=== PATIENT | male | born 1990 | race Caucasian/White ===

== ENCOUNTER → 2023-03-21 10:03 | Outpatient (BNVA) | payer BC, SELFPAY | PROVIDERS: PCP Nurse Practitioner; Visit Provider Internal Medicine Rheumatology | DX: Z11.59 Encounter for screening for other viral diseases (principal); Z79.899 Other long term (current) drug therapy; M19.90 Unspecified osteoarthritis, unspecified site | CPT/HCPCS: 36415; 72100; 72202; 73130; 73630; 80076; 82085; 82306; 82550; 82565; 83520; 85025; 85651; 86140; 86480; 86704; 86803; 86812; 87340 ==

== ENCOUNTER 2023-04-20 09:15 | Outpatient (CLI) | payer BC, SELFPAY ==
[2023-04-20 10:08] LABS: Creatine Phosphokinase 107 U/L (39-308)
[2023-04-20 10:13] LABS: Erythrocyte Sedimentation Rate 5 mm/hr (0-10)
[2023-04-22 14:05] LABS: Aldolase 5.3 U/L (< OR = 8.1)
[2023-04-29 00:19] LABS: Myositis EJ AB <11 SI (<11); Myositis JO-1 AB <11 SI (<11); Myositis MDA-5 AB <11 SI (<11); Myositis MI-2 Alpha AB <11 SI (<11); Myositis MI-2 Beta AB <11 SI (<11); Myositis NXP-2AB <11 SI (<11); Myositis OJ AB <11 SI (<11); Myositis PL-12 AB <11 SI (<11); Myositis PL-7 AB <11 SI (<11); Myositis SRP AB <11 SI (<11); Myositis TIF-1y AB <11 SI (<11)
== END 2023-04-20 09:16 | disposition home or self-care (01) ==
LOC: LAB 09:16
PROVIDERS: PCP Nurse Practitioner; Visit Provider Internal Medicine Rheumatology
DX: M06.041 Rheumatoid arthritis without rheumatoid factor, right hand (principal); M06.042 Rheumatoid arthritis without rheumatoid factor, left hand; Z79.899 Other long term (current) drug therapy
CPT/HCPCS: 36415; 82085; 82550; 84182; 85651; 86140; 86235

== ENCOUNTER 2023-05-02 11:29 | Outpatient (CLI) | payer BC, SELFPAY ==
[2023-05-02 12:16] LABS: Erythrocyte Sedimentation Rate 12 mm/hr (0-10)
[2023-05-02 12:38] LABS: Creatine Phosphokinase 294 U/L (39-308)
[2023-05-02 13:50] LABS: Free T4 Free Thyroxine 1.18 ng/dL (0.82-1.77)
[2023-05-04 08:29] LABS: Thyroglobulin AB <1 IU/mL (< or = 1); Thyroid Peroxidase Antobodies <1 IU/mL (<9)
[2023-05-04 13:30] LABS: Aldolase 10.9 U/L (< OR = 8.1)
== END 2023-05-02 11:30 | disposition home or self-care (01) ==
LOC: LAB 11:30
PROVIDERS: PCP Nurse Practitioner; Visit Provider Internal Medicine Rheumatology
DX: R76.8 Other specified abnormal immunological findings in serum (principal); M79.7 Fibromyalgia; Z79.899 Other long term (current) drug therapy; M54.89 Other dorsalgia; M06.041 Rheumatoid arthritis without rheumatoid factor, right hand; M06.042 Rheumatoid arthritis without rheumatoid factor, left hand
CPT/HCPCS: 36415; 82085; 82550; 84439; 84443; 85651; 86140; 86376; 86800

== ENCOUNTER → 2023-06-28 14:33 | Outpatient (BNVA) | payer BC, SELFPAY | PROVIDERS: PCP Nurse Practitioner; Visit Provider Internal Medicine Rheumatology | DX: Z79.899 Other long term (current) drug therapy (principal); M06.041 Rheumatoid arthritis without rheumatoid factor, right hand; M06.042 Rheumatoid arthritis without rheumatoid factor, left hand | CPT/HCPCS: 36415; 80076; 82565; 85025; 86140 ==

== ENCOUNTER 2023-08-26 11:11 | Outpatient (CLI) | payer SELFPAY ==
[2023-08-26 11:45] LABS: Erythrocyte Sedimentation Rate 9 mm/hr (0-10)
[2023-08-26 12:05] LABS: C Reactive Protein 3.2 mg/L (0.0-4.9); Creatine Phosphokinase 153 U/L (39-308); Free T4 Free Thyroxine 0.88 ng/dL (0.82-1.77)
[2023-08-29 12:39] LABS: Aldolase 6.2 U/L (< OR = 8.1)
== END 2023-08-26 11:12 | disposition home or self-care (01) ==
LOC: LAB 11:12
PROVIDERS: PCP Nurse Practitioner; Visit Provider Internal Medicine Rheumatology
DX: M62.81 Muscle weakness (generalized) (principal); R53.83 Other fatigue; Z79.899 Other long term (current) drug therapy
CPT/HCPCS: 82085; 82550; 84439; 84443; 85651; 86140

== ENCOUNTER 2023-10-14 11:21 | Outpatient (CLI) | payer SELFPAY | END 2023-10-14 11:22 | disposition home or self-care (01) | LOC: LAB 11:26 | PROVIDERS: PCP Nurse Practitioner; Visit Provider Internal Medicine Rheumatology | DX: G25.82 Stiff-man syndrome (principal) | CPT/HCPCS: 36415; 86337; 86341 ==

== ENCOUNTER 2024-01-07 11:40 | Emergency (ER) | payer BC, SELFPAY ==
[2024-01-07 11:45] VITALS: BP 117/75; PULSE 66; RESP 16; TEMP 36.7; O2SAT 98; BMI 38.0
--- NOTE | 2024-01-07 11:59 | W.ED.MALEGU ---
HPI - Male Genitourinary General: Chief complaint: Urogenital-Male Stated complaint: catheter issue Time Seen by Provider: 01/07/24 11:58 History of Present Illness: 33-year-old male presents to the emergency room complaining difficulty with Molina. Patient was seen in another facility evidently found to have urinary retention and a Molina was placed. He was discharged home on Flomax. He is complaining of pain and irritation at the glans of the penis-difficulty managing the Molina bag. He did not feel like he had been educated properly on how to use the Molina. He has a full-size Molina bag in place at this time. Associated symptoms: Deny dysuria Related Data Home Medications Medication Instructions Recorded Confirmed acetaminophen 500 mg tablet 1,000 mg PO QID PRN 03/21/23 06/28/23 (Tylenol Extra Strength) aripiprazole 10 mg tablet (Abilify) 10 mg PO DAILY 03/21/23 06/28/23 baclofen 10 mg tablet 20 mg PO TID 03/21/23 06/28/23 celecoxib 200 mg capsule (Celebrex) 200 mg PO DAILY 03/21/23 06/28/23 diazepam 10 mg tablet 10 mg PO BID 03/21/23 06/28/23 diazepam 5 mg tablet 5 mg PO .noon 03/21/23 06/28/23 duloxetine 60 mg capsule,delayed 60 mg PO DAILY 03/21/23 06/28/23 release dexmethylphenidate 40 mg 40 mg PO QAM 05/26/23 06/28/23 capsule,extended release [id number] (Focalin XR) levothyroxine 50 mcg capsule 75 mcg PO DAILY 05/26/23 06/28/23 Previous Rx's Medication Instructions Recorded prednisone 20 mg tablet See Rx Instructions PO .COMPLEX 03/21/23 PRN joint pain flare #30 tabs folic acid 1 mg tablet 1 mg PO DAILY #30 tabs 06/28/23 hydroxychloroquine 200 mg tablet 200 mg PO BID #60 tabs 06/28/23 methotrexate sodium 2.5 mg tablet See Rx Instructions PO Q7D #30 tabs 06/28/23 pantoprazole 40 mg tablet,delayed See Rx Instructions PO DAILY #90 06/28/23 release tabs prednisone 10 mg tablet See Rx Instructions PO DAILY #90 06/28/23 tabs pregabalin 100 mg capsule (Lyrica) 200 mg (2 x 100 mg) PO BID #120 06/28/23 caps ciprofloxacin HCl 500 mg tablet 500 mg PO BID 7 days #14 tabs 01/07/24 (Cipro) Allergies Allergy/AdvReac Type Severity Reaction Status Date / Time cefaclor [From Pending Sale To [facility]] Allergy Intermediate hives Verified 01/07/24 11:44 Tetanus Vaccines and Toxoid Allergy Unknown unknown Verified 01/07/24 11:44 Review of Systems Const: Denies: fever(s) or chills Card: Denies: chest pain Resp: Denies: dyspnea GI: Denies: abdominal pain : Denies: dysuria, urinary frequency or urinary urgency Musc: Denies: neck pain or back pain Skin/Breast: Denies: rash PFSH ED PFSH: Medical History Psychiatric care Immunization counseling High risk medication use Inflammatory back pain Seronegative rheumatoid arthritis of both hands Fibromyalgia Hypothyroid Schizo affective schizophrenia Bipolar 1 disorder, depressed Panic attack ADHD Joint pain Surgical History History of dental surgery Family History Other Cancer Denies family history of Lupus (systemic lupus erythematosus) Rheumatoid arthritis Diabetes Autoimmune disease Chronic kidney disease (CKD) Hypertension Social History Smoking and tobacco/nicotine status: current every day tobacco/nicotine user e-cigarettes E-cig/vape details: Vapes daily for quite a while Alcohol intake: never Substance/Drug Use: never Physical Exam Const: GENERAL APPEARANCE: cooperative ORIENTATION/CONSCIOUSNESS: Yes awake, Yes oriented to person, Yes oriented to place and Yes oriented to time HENMT: COMMON NORMALS: normocephalic, atraumatic and hearing grossly normal bilaterally HEAD & SCALP: normocephalic and atraumatic Resp: COMMON NORMALS: normal respiratory effort, No retractions, No use of accessory muscles and clear to auscultation bilaterally AUSCULTATION: clear to auscultation bilaterally Cardio: COMMON NORMALS: regular rate, regular rhythm and No murmurs present (Cardio) RATE: regular rate RHYTHM: regular rhythm GI: COMMON NORMALS: Soft to palpation and No hepatosplenomegaly present AUSCULTATION: Yes normoactive bowel sounds PALPATION: Yes Soft to palpation, No Tenderness to palpation present (GI), No Guarding due to palpation present (GI) and Yes No hepatosplenomegaly present : COMMON NORMALS: Yes no CVA tenderness BLADDER/KIDNEY EXAM: Yes no CVA tenderness Back/Pelvis: COMMON NORMALS: no CVA tenderness Extremity: COMMON NORMALS: normal to inspection, capillary refill normal, no clubbing, cyanosis or edema, no calf tenderness and no pedal edema Neuro: SENSORIUM/ORIENTATION: Yes oriented to person, Yes oriented to place and Yes oriented to time Skin: COMMON NORMALS: no rashes or lesions noted GENERAL SKIN EXAM: no rashes or lesions noted Course Vital Signs: Vital signs: Vital Signs Temperature 98.1 F 01/07/24 11:45 Pulse Rate 65 01/07/24 12:59 Respiratory Rate 16 01/07/24 11:45 Blood Pressure 117/75 01/07/24 11:45 Pulse Oximetry 100 01/07/24 12:59 MDM - Male Medical Decision Making Patient does have a cystitis urine reviewed. Started on ciprofloxacin continue the Flomax will change his bag out to a leg bag to make it easier to manage nurse educated patient on management of it. Will discharge patient home and have him follow-up with urology as planned. Medical Records I reviewed the patient's medical records. Lab Data I reviewed the patient's lab results. 01/07/24 12:26 01/07/24 12:26 Laboratory Results WBC 6.43 10^3/uL (3.29-11.43) 01/07/24 12: RBC 4.48 10^6/uL (3.85-5.65) 01/07/24 12: Hgb 13.20 g/dL (11.27-16.99) 01/07/24 12: Hct 40.6 % (37-53) 01/07/24 12: MCV 90.6 fl (82-101) 01/07/24 12: MCH 29.5 pg (27-33) 01/07/24 12: MCHC 32.5 g/dL (30-55) 01/07/24 12: RDW 14.0 % (12.1-15.1) 01/07/24 12: Plt Count 226 10^3/cmm (157-399) 01/07/24 12: MPV 8.7 fL (7.4-10.4) 01/07/24 12: Neut % (Auto) 70.4 % 01/07/24 12: Lymph % (Auto) 21.8 % 01/07/24 12: [place] % (Auto) 6.4 % 01/07/24 12: Eos % (Auto) 0.8 % 01/07/24 12: Baso % (Auto) 0.6 % 01/07/24 12: Neut # (Auto) 4.53 10^3/uL (1.8-7.7) 01/07/24 12: Lymph # (Auto) 1.4 10^3/uL (0.8-4.8) 01/07/24 12: [place] # (Auto) 0.4 10^3/uL (0.2-0.9) 01/07/24 12: Eos # (Auto) 0.1 10^3/uL (0.0-0.8) 01/07/24 12: Baso # (Auto) 0.0 10^3/uL (0.0-0.1) 01/07/24 12: Nucleated RBC % (auto) 0 % 01/07/24 12: Nucleated RBCs # 0.0 /100WBC 01/07/24 12: Sodium 135 mmol/L (136-145) L 01/07/24 12: Potassium 4.0 mmol/L (3.5-5.1) 01/07/24 12: Chloride 101 mmol/L (98-107) 01/07/24 12: Carbon Dioxide 26 mmol/L (22-29) 01/07/24 12: Anion Gap 12.0 (5-19) 01/07/24 12: BUN 7 mg/dL (6-20) 01/07/24 12: Creatinine 0.9 mg/dL (0.7-1.2) 01/07/24 12: GFR Calculation 97.8 mL/min (90-130) 01/07/24 12: Glucose 107 mg/dL (65-115) 01/07/24 12: Calculated Osmolality 278 mOsm/kg (285-295) L 01/07/24 12: Calcium 8.8 mg/dL (8.5-10.5) 01/07/24 12: Total Bilirubin 0.3 mg/dL (0.15-1.2) 01/07/24 12: AST 18 U/L (0-40) 01/07/24 12: ALT 17 U/L (0-41) 01/07/24 12: Alkaline Phosphatase 61 U/L (40-130) 01/07/24 12: Total Protein 6.0 g/dL (6.6-8.7) L 01/07/24 12: Albumin 3.8 g/dL (3.5-5.2) 01/07/24 12: Globulin 2.2 g/dL (1.3-4.6) 01/07/24 12: Urine Color Yellow (Yellow) 01/07/24 12:08 Urine Appearance Clear (CLEAR) 01/07/24 12:08 Urine pH 7.5 (5-7) 01/07/24 12:08 Ur Specific [place] 1.003 (1.005-1.030) L 01/07/24 12:08 Urine Protein Negative (Negative) 01/07/24 12: Urine Glucose (UA) Negative (Normal) 01/07/24 12: Urine Ketones Negative (Negative) 01/07/24 12:08 Urine Blood 3+ (Negative) A 01/07/24 12: Urine Nitrate Positive (Negative) A 01/07/24 12: Urine Bilirubin Negative (Negative) 01/07/24 12:08 Urine Urobilinogen 0.2 mg/dL (Negative) 01/07/24 12:08 Ur Leukocyte Esterase 2+ (Negative) A 01/07/24 12:08 Urine RBC 15-25 /hpf (0-2) H 01/07/24 12:08 Urine WBC 25-40 /hpf (0-5) H 01/07/24 12:08 Ur Squamous Epith Cells 0-4 /hpf (0-5) H 01/07/24 12:08 Amorphous Sediment Not Reportable 01/07/24 12:08 Urine Bacteria 2+ /hpf (NONE) H 01/07/24 12:08 No radiology studies performed this visit Discharge Plan Discharge Patient Disposition: Home Clinical Impression: Acute urinary retention, Cystitis Condition: Stable Prescriptions: New ciprofloxacin HCl [Cipro] 500 mg tablet 500 mg PO BID 7 Days Qty: 14 0RF No Action aripiprazole [Abilify] 10 mg tablet 10 mg PO DAILY diazepam 10 mg tablet 10 mg PO BID diazepam 5 mg tablet 5 mg PO .noon duloxetine 60 mg capsule,delayed release(DR/EC) 60 mg PO DAILY baclofen 10 mg tablet 20 mg PO TID celecoxib [Celebrex] 200 mg capsule 200 mg PO DAILY acetaminophen [Tylenol Extra Strength] 500 mg tablet 1,000 mg PO QID PRN prednisone 20 mg tablet See Rx Instructions PO .COMPLEX PRN (Reason: joint pain flare) Qty: 30 1RF Rx Instructions: take 2 tab daily for 7 days as needed for arthritis flare PO PRN; levothyroxine 50 mcg capsule 75 mcg PO DAILY folic acid 1 mg tablet 1 mg PO DAILY Qty: 30 5RF hydroxychloroquine 200 mg tablet 200 mg PO BID Qty: 60 5RF methotrexate sodium 2.5 mg tablet See Rx Instructions PO Q7D Qty: 30 5RF Rx Instructions: take 6 tabs once weekly/every tuesday PO every 7 days; pantoprazole 40 mg tablet,delayed release (DR/EC) See Rx Instructions PO DAILY Qty: 90 1RF Rx Instructions: take in AM 30 minutes before meal PO daily; prednisone 10 mg tablet See Rx Instructions PO DAILY Qty: 90 1RF Rx Instructions: take 20mg daily x2 weeks then stay on 10mg orally daily; pregabalin [Lyrica] 100 mg capsule 200 mg PO BID Qty: 120 5RF dexmethylphenidate [Focalin XR] 40 mg capsule,ER biphasic 50-50 40 mg PO QAM Discharge Orders: Discharge ED (Routine); Ordered 01/07/24 Ordered By: Mendez Wilson Referrals: Klaudia Mullins APRN [Primary Care Provider] - Discharge Diet: Usual diet Discharge Activity: Resume usual activity Patient Instructions: Opioid Safety, Pain Management Activity Restrictions/Additional Instructions: Thank you for choosing [facility] for your healthcare needs today. It is very important that you follow up as instructed or that you return to the Emergency Department should you have concerns or if your condition changes or worsens in any way. You were seen today with complaints of difficulty with the Molina catheter. Due to related to his that the Molina catheter was placed at an outside hospital for urinary retention. There is signs of infection on the urine sample done today. Recommend you start oral antibiotics 1 pill twice a day for 7 days follow-up with urology as you were previously recommended. We did replace the Molina bag you were wearing when you first arrived with a leg bag which will be easier to manage. Coding Level of Care Code ED Faa Certified Powerplant Mechanic for Randall Kebede
[2024-01-07 12:17] LABS: Bilirubin Urine Negative (Negative); Blood Urine 3+ (Negative); Glucose Urine UA Negative (Normal); Ketones Urine Negative (Negative); Leukocyte Esterase Urine 2+ (Negative); Nitrate Urine Positive (Negative); Protein Urine Negative (Negative); Specific Gravity, Urine 1.003 (1.005-1.030); Urine Appearance Clear (CLEAR); Urine Color Yellow (Yellow); Urobilinogen Urine 0.2 mg/dL (Negative); pH Urine 7.5 (5-7)
[2024-01-07 12:26] LABS: Add Urine Microscopic? YES; Bacteria Urine 2+ /hpf; RBC Urine 15-25 /hpf (0-2); Squamous Epithelial Cell Urine 0-4 /hpf (0-5); UA Manual Slide Review YES; WBC Urine 25-40 /hpf (0-5)
[2024-01-07 12:27] LABS: Add Urine Culture? Yes
[2024-01-07 12:35] LABS: Basophils % 0.6 %; Eosinophils # 0.1 10^3/uL (0.0-0.8); Eosinophils % 0.8 %; Hematocrit 40.6 % (37-53); Lymphocytes # 1.4 10^3/uL (0.8-4.8); Lymphocytes % 21.8 %; Mean Corpuscular HGB Conc 32.5 g/dL (30-55); Mean Corpuscular Hemoglobin 29.5 pg (27-33); Mean Corpuscular Volume 90.6 fl (82-101); Mean Platelet Volume 8.7 fL (7.4-10.4); Monocytes # 0.4 10^3/uL (0.2-0.9); Monocytes % 6.4 %; Neutrophils # 4.53 10^3/uL (1.8-7.7); Neutrophils % 70.4 %; Nucleated Red Blood Cells % 0 %; Platelet Count 226 10^3/cmm (157-399); Red Blood Count 4.48 10^6/uL (3.85-5.65); White Blood Count 6.43 10^3/uL (3.29-11.43)
[2024-01-07 12:50] LABS: Alanine Aminotransferase 17 U/L (0-41); Albumin Level 3.8 g/dL (3.5-5.2); Alkaline Phosphatase 61 U/L (40-130); Aspartate Amino Transferase 18 U/L (0-40); Blood Urea Nitrogen 7 mg/dL (6-20); Calcium 8.8 mg/dL (8.5-10.5); Carbon Dioxide 26 mmol/L (22-29); Chloride 101 mmol/L (98-107); Creatinine Clr Calc Pharmacy 143.9987; Globulin 2.2 g/dL (1.3-4.6); Glomerular Filtration Rate 97.8 mL/min (90-130); Glucose 107 mg/dL (65-115); Osmolality Calculated 278 mOsm/kg (285-295); Sodium 135 mmol/L (136-145); Total Bilirubin 0.3 mg/dL (0.15-1.2)
[2024-01-07 12:59] VITALS: PULSE 65; O2SAT 100
== END 2024-01-07 13:01 | disposition home or self-care (01) ==
PROVIDERS: Emergency Provider Family Medicine; PCP Nurse Practitioner
DX: N30.90 Cystitis, unspecified without hematuria (principal); R33.9 Retention of urine, unspecified
CPT/HCPCS: 80053; 81001; 85025; 87077; 87086; 87186; 99283

== ENCOUNTER 2024-08-26 17:13 | Emergency (ER) | payer BC, SELFPAY ==
[2024-08-26 17:18] VITALS: BP 161/116; PULSE 74; RESP 20; TEMP 36.7; O2SAT 96; BMI 45.6
--- NOTE | 2024-08-26 17:40 | CTR_ITS ---
PROCEDURE INFORMATION: Exam: CT Maxillofacial With Contrast Exam date and time: 08/26/2024 6:12 PM Age: 34 years old Clinical indication: Jaw pain; Patient C/O worsening RT sided facial and dental pain. Currently on antibiotics for RT upper dental infection. ; Additional info: Dental abscess TECHNIQUE: Imaging protocol: Computed tomography of the face with contrast. Radiation optimization: All CT scans at this facility use at least one of these dose optimization techniques: automated exposure control; mA and/or kV adjustment per patient size (includes targeted exams where dose is matched to clinical indication); or iterative reconstruction. Contrast material: OMNI 350; Contrast volume: 100 ml; Contrast route: INTRAVENOUS (IV); COMPARISON: No relevant prior studies available. RADIATION DOSE METRICS: Total DLP (mGy-cm): 572.38 FINDINGS: Paranasal sinuses: No air-fluid levels. Orbital cavities: Orbits are normal. Globes are unremarkable. Teeth: Extensive dental caries. Periodontal lucency at the apex of the right lower 2nd molar consistent with periapical abscess (series 10, image 58). The bilateral lower canines are absent. Periodontal lucency at the apex of the left lower 2nd molar consistent with periapical abscess (series 10, image 28). Bones: No acute fracture. Soft tissues: Unremarkable. CT/CT facial bones w con [id number] IMPRESSION: 1. Extensive dental caries. 2. Periodontal lucency at the apex of the right lower 2nd molar consistent with periapical abscess (series 10, image 58). 3. Periodontal lucency at the apex of the left lower 2nd molar consistent with periapical abscess (series 10, image 28).
[2024-08-26] MEDS: lidocaine 2% viscous 15 mL UDC 5 ML TOPICAL (17:48)
--- NOTE | 2024-08-26 17:51 | PC.NURSE ---
lidocaine placed onto tooth with q-tip, then a gauze with lidocaine placed over tooth.
[2024-08-26] MEDS: iohexol 350 mg/mL 500 mL Btl (per mL) IV (18:15)
[2024-08-26 18:24] VITALS: BP 141/101; PULSE 71; O2SAT 95
[2024-08-26 20:00] VITALS: BP 147/93; O2SAT 98
[2024-08-26] MEDS: amoxicillin-clav 875-125 mg Tablet 1 TAB PO (20:21)
--- NOTE | 2024-08-26 20:21 | W.ED.DENTAL ---
HPI - Dental/Oral General: Chief complaint: Dental/Oral Stated complaint: upper rt dental Time Seen by Provider: 08/26/24 17:30 History of Present Illness: This patient is a 34-year-old white male who presents to the emergency department concerned about a possible dental abscess. Patient states he has been on clindamycin for 10 days and just finished his last dose today for a cracked right upper wisdom tooth. Patient states he has not had any relief from the clindamycin. Has not had a fever. No drainage. Related Data Home Medications ?Medication ?Instructions ?Recorded ?Confirmed acetaminophen 500 mg tablet 1,000 mg PO QID PRN 03/21/23 06/28/23 (Tylenol Extra Strength) aripiprazole 10 mg tablet (Abilify) 10 mg PO DAILY 03/21/23 06/28/23 diazepam 10 mg tablet 10 mg PO BID 03/21/23 06/28/23 baclofen 20 mg tablet 20 mg PO TID PRN 03/26/24 03/26/24 clindamycin HCl 300 mg capsule mg PO 03/26/24 03/26/24 dextromethorphan HBr PO 03/26/24 03/26/24 escitalopram oxalate 10 mg tablet 15 mg PO DAILY 03/26/24 03/26/24 (Lexapro) levothyroxine 75 mcg tablet mcg PO 03/26/24 03/26/24 methylphenidate HCl 27 mg mg PO 03/26/24 03/26/24 tablet,extended release 24 hr Previous Rx's ?Medication ?Instructions ?Recorded pregabalin 100 mg capsule (Lyrica) 200 mg (2 x 100 mg) PO BID #120 04/02/24 caps hydroxychloroquine 200 mg tablet 200 mg PO BID #60 tabs 06/04/24 folic acid 1 mg tablet 1 mg PO DAILY #30 tabs 08/08/24 methotrexate sodium 2.5 mg tablet See Rx Instructions .Route 08/08/24 .COMPLEX #30 tabs pantoprazole 40 mg tablet,delayed See Rx Instructions PO DAILY #30 08/08/24 release tabs amoxicillin 875 mg-potassium 1 tab PO BID #20 tabs 08/26/24 clavulanate 125 mg tablet Allergies Allergy/AdvReac Type Severity Reaction Status Date / Time cefaclor (From [facility]) Allergy Intermediate hives Verified 08/26/24 17:17 Tetanus Vaccines and Toxoid Allergy Unknown unknown Verified 08/26/24 17:17 Review of Systems General: Reports: 10 or more systems reviewed and unremarkable except in HPI and below ENMT: Reports: dental pain PFSH ED PFSH: Medical History (Updated 08/26/24 @ 20:19 by Harrison Elder MD) Immunization counseling High risk medication use Inflammatory back pain Seronegative rheumatoid arthritis of both hands Fibromyalgia Hypothyroid Schizo affective schizophrenia Bipolar 1 disorder, depressed Panic attack ADHD Joint pain Surgical History History of dental surgery Family History Other Cancer Denies family history of Lupus (systemic lupus erythematosus) Rheumatoid arthritis Diabetes Autoimmune disease Chronic kidney disease (CKD) Hypertension Social History Smoking and tobacco/nicotine status: never used tobacco/nicotine Alcohol intake: never Substance/Drug Use: never Physical Exam Const: COMMON NORMALS: no acute distress, patient oriented x3 and no limitations GENERAL APPEARANCE: cooperative and comfortable HENMT: COMMON NORMALS: normocephalic, atraumatic, Normal nasal mucous membranes and turbinates present, moist oral mucous membranes and oropharynx normal HEAD & SCALP: normal to inspection, normocephalic and atraumatic FACE & SINUS: normal facial exam NOSE: Normal nasal mucous membranes and turbinates present TEETH & GINGIVA: Yes caries Eye: COMMON NORMALS: Equal, round and reactive pupils present, EOMs intact bilaterally and conjunctivae normal GENERAL EYE: appearance normal, both eyes and all related structures CONJUNCTIVA: Yes conjunctivae normal PUPIL: Yes Equal, round and reactive pupils present Neck/C-Spine: COMMON NORMALS: supple and no JVD Chest: COMMONS NORMALS: normal inspection of the chest Resp: COMMON NORMALS: normal respiratory effort and clear to auscultation bilaterally AUSCULTATION: clear to auscultation bilaterally Cardio: COMMON NORMALS: no JVD, regular rate, regular rhythm, No gallops present (Cardio), No murmurs present (Cardio) and No rub (Cardio) RATE: regular rate RHYTHM: regular rhythm GI: COMMON NORMALS: Normal to inspection, nondistended, normoactive bowel sounds present, Soft to palpation and non-tender AUSCULTATION: Yes normoactive bowel sounds PALPATION: Yes Soft to palpation : COMMON NORMALS: Yes no CVA tenderness BLADDER/KIDNEY EXAM: Yes no CVA tenderness Back/Pelvis: COMMON NORMALS: no CVA tenderness and thoracic and lumbar spine normal to inspection Extremity: COMMON NORMALS: normal to inspection Neuro: COMMON NORMALS: patient oriented x3 and CN's II-XII intact bilaterally Psych: COMMON NORMALS: mental status grossly normal, Normal thought process present and cooperative THOUGHT PROCESS: Normal thought process present Skin: COMMON NORMALS: no rashes or lesions noted, turgor normal and no jaundice GENERAL SKIN EXAM: no rashes or lesions noted and turgor normal Course Vital Signs: Vital signs: Vital Signs Temperature 98.0 F 08/26/24 17:18 Pulse Rate 71 08/26/24 18:24 Respiratory Rate 20 H 08/26/24 17:18 Blood Pressure 147/93 08/26/24 20:00 Pulse Oximetry 98 08/26/24 20:00 Oxygen Delivery Me thod Room Air 08/26/24 20:00 MDM - Dental/Oral Medical Decision Making CT of the facial bones with IV contrast was read by the radiologist. He does have numerous dental caries. He has 2 periapical abscesses 1 on the right lower molar and 1 in the left lower molar. Area around the right upper wisdom tooth appear to be normal. Results were discussed with the patient. I did place him on Augmentin. Recommended he follow-up with a dentist to soon as possible for definitive care. Lab Data Radiology Impressions Face CT 08/26/24 17:40 IMPRESSION: 1. Extensive dental caries. 2. Periodontal lucency at the apex of the right lower 2nd molar consistent with periapical abscess (series 10, image 58). 3. Periodontal lucency at the apex of the left lower 2nd molar consistent with periapical abscess (series 10, image 28). All radiology interpretation(s) finalized by discharge Discharge Plan Discharge Patient Disposition: Home Clinical Impression: Dental caries, Dental abscess Condition: Stable Prescriptions: New amoxicillin-pot clavulanate 875-125 mg tablet 1 tab PO BID Qty: 20 0RF No Action aripiprazole [Abilify] 10 mg tablet 10 mg PO DAILY diazepam 10 mg tablet 10 mg PO BID acetaminophen [Tylenol Extra Strength] 500 mg tablet 1,000 mg PO QID PRN clindamycin HCl 300 mg capsule PO baclofen 20 mg tablet 20 mg PO TID PRN levothyroxine 75 mcg tablet PO methylphenidate HCl 27 mg tablet extended release 24hr PO escitalopram oxalate [Lexapro] 10 mg tablet 15 mg PO DAILY dextromethorphan HBr PO pregabalin [Lyrica] 100 mg capsule 200 mg PO BID Qty: 120 5RF hydroxychloroquine 200 mg tablet 200 mg PO BID Qty: 60 0RF folic acid 1 mg tablet 1 mg PO DAILY Qty: 30 0RF pantoprazole 40 mg tablet,delayed release (DR/EC) See Rx Instructions PO DAILY Qty: 30 1RF Rx Instructions: take in AM 30 minutes before meal PO daily; methotrexate sodium 2.5 mg tablet See Rx Instructions .ROUTE .COMPLEX Qty: 30 0RF Dose Instruction: TAKE 6 TABLETS BY MOUTH ONCE A WEEK DIRECTED Rx Instructions: TAKE 6 TABLETS BY MOUTH ONCE A WEEK DIRECTED Discharge Orders: Discharge ED (Routine); Ordered 08/26/24 Ordered By: Harrison Elder Referrals: Klaudia Mullins APRN [Primary Care Provider] Patient Instructions: Dental Caries (Cavities) Activity Restrictions/Additional Instructions: Follow-up with a dentist as soon as possible. Print Language: Armenian Coding Level of Care Code ED Photographer Model for Randall Kebede
[2024-08-26 20:26] VITALS: BP 147/93; PULSE 68; O2SAT 97
== END 2024-08-26 20:27 | disposition home or self-care (01) ==
PROVIDERS: Emergency Provider Emergency Medicine; PCP Nurse Practitioner
DX: K02.9 Dental caries, unspecified (principal); K04.7 Periapical abscess without sinus
CPT/HCPCS: 70487; 99285; J9999

== ENCOUNTER 2024-10-07 19:21 | Emergency (ER) | payer SELFPAY ==
--- OUTSIDE RECORDS SUMMARY | 2019-02-21 03:29 | XMS_ITS | Continuity of Care Document ---
Author Organization [facility] Address [address] [place] [phone] Phone Care Team Providers Care Rounding And Backing Machine Operator Name Role Phone Quinn BEACH, Mc Unavailable Unavailable Advance Directives Directive Yes / No Effective Date File Name No Information Encounters Encounter Description Practice Location Reason(s) For Visit Diagnoses Date Provider Providers Copied on Encounter [facility], [address] [place] [address], [place], [place], [id number] tel:[phone] [address] [place] [address] [facility] No Information 9 Quinn Bentley. [address] [place] [address], [place], [place], [id number] , . tel:[phone] Family History Family Member Type Diagnosis Age At Onset No Information Payers Payer name Insurance type Covered democrat ID Authoriza tion(s) No Information Social History [...]
--- OUTSIDE RECORDS SUMMARY | 2024-06-01 05:30 | XMS_ITS ---
Author Organization [facility] Address [address] [place] [address] Care Team Providers Care Boot Liner Maker Name Role Phone Klaudia Kelsey APRN Primary Care Provider Unavailable Ronny Weber [phone] REASON FOR VISIT Cervicalgia Encounters Encounter Location Date Provider Diagnosis [facility] [place] [address] [place] [address] 06/01/2024 Ronny Weber Plan Of Treatment No [...] * CHEN ARDONOB:1990 ( 34 yo M)Acc No.[id number]:06/01/2024 Progress Notes Patient: JAELYN DACOSTA Provider: Faraz Weber MD :1990 A ge:34 Y S ex:Male Date:06/01/2024 Address:[address] [place] [address] [id number] Pcp:ALEISHA Fernandez Subjective: * Chief Complaints: * C ervicalgia [...] border-collapse:collapse; position:relative; width:99%; margin-left: 1px; table-layout:fixed; word-break:break-word; -wd-yycr-kgix:break-word; class= vojgr-gj-enoab-table ><tbody><tr><td style= border: 0.5px solid; paddinpx; box-sizing:border-box; [...] border-collapse:collapse; position:relative; width:99%; margin-left: 1px; table-layout:fixed; word-break:break-word; -pw-eiqm-ribx:break-word; class= mrdys-on-fhqjr-table ><tbody><tr><td style= border: 0.5px solid; paddinpx; box-sizing:border-box; [...] border-collapse:collapse; position:relative; width:99%; margin-left: 1px; table-layout:fixed; word-break:break-word; -jk-ivrk-wgdf:break-word; class= gmaae-ln-tpghp-table ><tbody><tr><td style= border: 0.5px solid; paddinpx; box-sizing:border-box; [...] Electronic signature of Ronny Weber MD on 10/07/2024 at 07:29 PM CDT Sign off status: Pending * Provider: Faraz Weber MD Date: 06/01/2024 Generated for Frandy jim/Masoud/Hetalitting on: 10/07/2024 07:29 PM CDT
--- OUTSIDE RECORDS SUMMARY | 2024-10-07 19:29 | XMS_ITS | Encounter Summary ---
Author Organization [facility] Address [address] [place] [address] Care Team Providers Care Digester Operator Name Role Phone Klaudia Kelsey APRN Primary Care Provider Reason for Referral * EVAL & TREAT (Routine) - Closed Specialty Diagnoses / Procedures Referred By Contac t Referred To Contact Rheumatology Diagnoses Unspecified abnormalities of gait and mobility Spondylolysis, lumbar region Muscle weakness (generalized) Right lower quadrant pain Ronny Weber MD [address] [place] [id number] Phone: tel: fax: [facility] [address] [place] [address] Phone: tel: fax: Referral ID Status Reason Start Date Expiration Date V isits Requested Visits Authorized [id number] Closed Specialty Services Required 06/11/2024 06/12/2025 1 1 Encounter Details Date Type Department Care Team (Latest Contact Info) Description 06/12/2024 [place] [address] Ronny Weber MD [address] [place] [id number] Unspecified abnormalities of gait and mobility (Primary Dx); Spondylolysis, lumbar region; Muscle weakness (generalized); Right lower quadrant pain Social History Tobacco Use Types Packs/Day Years Used Date Smoking Tobacco: Never Assessed Sex and Gender Information Value Date Recorded Sex Assigned at Not on file Legal Sex Male 11:14 AM CDT Gender Identity Not on file Sexual Orientation Not on file documented as of this encounter Plan of Treatment Upcoming Encounters Date Type Department Care Team (Late st Contact Info) Description 10/31/2024 8:00 AM CDT Office Visit [facility] [address] [place], [place] [id number] Stephanie Connelly, RETAIL CUSTOMER SERVICE SPECIALIST, CORPORATE ADMINISTRATIVE ASSISTANT [address] [place], [place] [id number] Shaan Spence MD [address] [place], [place] [id number] Scheduled Referrals Name Type Priority Associated Diagnoses Orde r Schedule Ambulatory Referral to Rheumatology Outpatient Referral Routine Unspecified abnormalities of gait and mobility Spondylolysis, lumbar region Muscle weakness (generalized) Right lower quadrant pain 1 Occurrences starting 06/12/2024 until 06/12/2025 documented as of this encounter Visit Diagnoses Diagnosis Unspecified abnormalities of gait and mobility- Primary Spondylolysis, lumbar region Lumbosacral spondylosis without myelopathy Muscle weakness (generalized) Right lower quadrant pain documented in this encounter Care Teams Digester Operator Relationship Specialty Start Date End Date Klaudia Kelsey APRN [address] [place] [address] PCP - General Nurse Practitioner 07/18/24 documented as of this encounter
--- OUTSIDE RECORDS SUMMARY | 2024-10-07 19:29 | XMS_ITS | Patient Health Record ---
Author Organization [facility] Address [address] [place] [address] Care Team Providers Care Social Work Job Titles Name Role Phone Klaudia Kelsey APRN Primary Care Provider Unavailable Ronny Weber Unavailable [phone] Adam Vizcaino Unavailable [phone] Bret Robles Unavailable [phone] Migration, Provider Unavailable Unavailable Gastroenterology, [facility] Unavailable [phone] Jennifer Hunter Unavailable [phone] Christian Mueller Unavailable [phone] Eduar Poon Unavailable [phone] Allergies Allergen (clinical drug ingredient) Drug/Non Drug Allergy documented on EMR Reaction Allergy Type Onset Date Status cefaclor Cefaclor Hives Drug Allergy Active cefaclor Cefaclor Unknown Drug Allergy Active tetanus immune globulin Tetanus Immune Globulin Unknown Drug Allergy Active Reason For Referral Reason pain over his entire body including the upper extremities, chest/abdomen, and bilateral legs Diagnosis 1 Lumbar spondylosis ( M47.816) Diagnosis 2 Lumbar spondylolysis (M43.06) Diagnosis 3 Cervical spondylosis (M47.812) Diagnosis 4 Muscle weakness (M62 .81) Diagnosis 5 Right lower quadrant abdominal pain (R10.31) Diagnosis 6 Left lower quadrant abdominal pain (R10.32) Diagnosis 7 Unspecified abnormal ities of gait and mobility (R26.9) Diagnosis 8 Other chronic pain ( G89.29) Referral Organization Replaced By [facility] [place] Referring Provider First Name Ronny Referring Provider Last Name Tia Referring Provider Speciality Neurologic al Surgery Referred Provider [facility] Rheumatology [facility] Referred Provider Specialty Rheumatology Referral Priority Routine Medications Medication SIG (Take, Route, Frequency, Duration) Notes Start Date End Date Status Hydroxychloroquine Sulfate 200 MG Tablet as directed Orally 2 x a day Active DULoxetine HCl 60 MG Capsule Delayed Release Particles 1 capsule Orally Once a day Not-Taking Tamsulosin HCl 0.4 MG Capsule TAKE ONE CAPSULE BY MOUTH EVERY DAY Oral; Duration: 30 Days Active Levothyroxine Sodium 75 MCG Capsule 1 tablet in the morning on an empty stomach Orally Once a day Active Hyoscyamine Sulfate 0.125 MG Tablet 1 tablet as needed Orally every 4 hrs Active Baclofen 20 MG Tablet 1 tablet Administer without regards to meals as needed Orally Three times a day Active ARIPiprazole 10 MG Tablet 1 tablet Orally Once a day Active Ciprofloxacin HCl 500 MG Tablet TAKE 1 TABLET BY MOUTH TWICE DAILY FOR 7 DAYS Oral; Duration: 7 Days Active diazePAM 10 MG Tablet 1 tablet as needed Orally three times daily Active Lyrica 200 MG Capsule 2 tablets Orally 2 x a day Active Reglan 10 MG Tablet 1 tab Orally once a day; Duration: 1 days 01/20/2023 Not-Taking Gabapentin 300 MG Capsule 1 capsule Orally three times daily Not-Taking Metoclopramide HCl 10 MG Tablet 1 tab Orally once; Duration: 1 days 10/27/2023 Active Methotrexate Sodium 2.5 MG Tablet 6 tabs every wed Orally Active duloxetine *Reorder from [employer] for eRx and Interaction Alerts* Not-Taking Dexmethylphenidate HCl ER 20 MG Capsule Extended Release 24 Hour 1 capsule in the morning Orally Once a day Not-Taking dexmethylphenidate *Reorder from [employer] for eRx and Interaction Alerts* Active diazePAM *Pick strength-form from [employer] for eRX* Active Gabapentin *Pick strength-form from [employer] for eRX* Active Pantoprazole Sodium 40 MG Tablet Delayed Release 1 tablet Orally Once a day Active Modafinil 100 MG Tablet 1 tablet in the morning Orally Once a day Active ARIPiprazole *Pick strength-form from [employer] for eRX* Active Sucralfate 1 GM Tablet 1 tablet on an empty stomach Orally four time daily 10/27/2023 Active Tylenol *Pick strength-form from [employer] for eRX* Active Advil *Pick strength-form from [employer] for eRX* Active Levothyroxine *Reorder from [employer] for eRx and Interaction Alerts* Active Baclofen *Pick strength-form from [facility] for eRX* Active Social History Social History Drugs/Alcohol: Social Info Question Answer Notes Alcohol Screen (Audit-C) Did you have a drink containing alcohol in the past year? No Points 0 Interpretation Negative Tobacco Use: Social Info Question Answer Notes Tobacco Control (Standard) Additional Findings: Tobacco user e-cigarette Additional Details Category Social Info Options Details Migrated Social History Migrated Social History Alcoholic beverages? - No, Applying for disability? - No, Currently on disability? - No, Drug or substance abuse? - No, Involved in any legal proceedings or lawsuits? - No, Marital Status - , Nonprescription drug use? - No, Participation in detoxification or rehabilitation - No, Smoking - No, Working currently? - No Section Notes: Denies alcohol Caffeine-energy drinks occassionally. Denies alcohol Caffeine-energy drinks occassionally. Denies alcohol Caffeine-energy drinks occassionally. Problems Problem Type SNOMED Code ICD Code Onset Dates Problem Status W/U Status Risk Notes Problem Chronic pain (04227452) Other chronic pain (G89.29) Active confirmed Problem Chronic pain syndrome (862180733) Chronic pain syndrome (G89.4) Active confirmed Problem Abnormal gait (28539029) Unspecified abnormalities of gait and mobility (R26.9) Active confirmed Problem Neck pain (58519527) Neck pain (M54.2) Active confirmed Problem Lumbar spondylosis (078253208) Lumbar spondylosis (M47.816) Active confirmed Problem Acquired spondylolisthesis (004335142) Lumbar spondylolysis (M43.06) Active confirmed Problem Cervical spondylosis (798877462) Cervical spondylosis (M47.812) Active confirmed Problem Gastroesophageal reflux disease (651499427) Chronic gastroesophageal reflux disease (K21.9) Active confirmed Problem Allodynia (774171963) Allodynia (R20.8) Active confirmed Problem Gastroesophageal reflux disease (446927183) Gastroesophageal reflux disease, unspecified whether esophagitis present (K21.9) Active confirmed Vital Signs Heart Rate 110 /min 06/08/2024 Temperature 97.6 degrees Fahrenheit 06/08/2024 Respiratory Rate 18 /min 06/08/2024 Blood pressure diastolic 80 mm Hg 06/08/2024 Oximetry 94 % 06/08/2024 Height-cm 172.72 cm 06/08/2024 Weight-kg 111.13 kg 06/08/2024 Height 68 in 06/08/2024 Blood pressure systolic 126 mm Hg 06/08/2024 Weight 245 lbs 06/08/2024 BMI 37.25 kg/m2 06/08/2024 Encounters Encounter Location Date Provider Diagnosis Replaced By [facility] [address] [place] [address] 4 Jennifer Hunter Chronic diarrhea K52.9 ; Hematochezia K92.1 ; Gastroesophageal reflux disease, unspecified whether esophagitis present K21.9 ; Early satiety R68.81 and History of hematemesis Z87.19 Replaced By [facility] [place] [address] [place] [address] 5 Ronny Weber Muscle weakness M62.81 ; Fatigue, unspecified type R53.83 ; Allodynia R20.8 ; Cervical spondylosis M47.812 ; Lumbar spondylolysis M43.06 ; Lumbar spondylosis M47.816 ; Other chronic pain G89.29 and Neck pain M54.2 Replaced By [facility] [address] [place] [address] 4 Bret Robles Chronic diarrhea K52.9 ; Hematochezia K92.1 ; Gastroesophageal reflux disease, unspecified whether esophagitis present K21.9 and History of hematemesis Z87.19 Replaced By [facility] [address] [place] [address] 4 Christian Mueller Urinary retention R33.9 Replaced By [facility] [address] [place] [address] 4 Abodunrin Sukhwinderjo Replaced By [facility] [address] [place] [address] 4 [facility] [place] 4 Abodunrin Badejo Migrated_Facility 0 0 4 Provider Migration Migrated_Facility 0 0 4 Provider Migration Replaced By [facility] [place] [address] [place] [address] 5 Ronny Weber Cervical spondylosis M47.812 ; Lumbar spondylolysis M43.06 and Lumbar spondylosis M47.816 Replaced By [facility] [address] [place] [address] [place] [address] 5 Christian Mueller Assessments Encounter Date Diagnosis (ICD Code) Assessment Notes Treatment Notes Treatment Clinical Notes Section Notes 10/27/2023 Hematochezia (ICD-10 - K92.1) Encouraged Mr Ardon to get stools studies and labs done. Follow antidiarrhea measures and antireflux measures. Dr Vizcaino is scheduled to perform and egd and colonoscopy. He will make treatment and follow up decisions based on findings. 10/27/2023 Chronic diarrhea (ICD-10 - K52.9) Diarrhea Recommendations: 1. No liquids 30 minutes before meals and 1 hour after meals 2. No smoothies, milk, ice cream, or soup 3. Fiber Supplement 15 grams/day i.e. Metamucil wafer, 2 wafers with each meal (do not drink recommended liquid) 4. Stop all nonessential medications 5. Avoid concentrated sweets, juices, and sugar alcohols. The patient has a prerequisite risk factors for development of colon cancer. I have discussed the options of diagnostic testing with their advantages and disadvantages. I have recommended diagnostic colonoscopy with possible biopsy and polypectomy. Risks and Benefits: The benefits, risks, and complications were presented to pt. The patient is aware of the risk of bleeding, perforation, infection, and anesthetic complications related to colonoscopy. The patient is aware that although colonoscopy is an accurate procedure, it does have some limitations. As a result, some lesions, including cancer may be missed by colonoscopy. Ample time was given to answer all questions. Instructions given for the bowel prep. Follow up will be determined after the colonoscopy. Refer back to PCP. Encouraged Mr Ardon to get stools studies and labs done. Follow antidiarrhea measures and antireflux measures. Dr Vizcaino is scheduled to perform and egd and colonoscopy. He will make treatment and follow up decisions based on findings. 01/12/2024 Urinary retention (ICD-10 - R33.9) 06/08/2024 Fatigue, unspecified type (ICD-10 - R53.83) 06/11/2024 Cervical spondylosis (ICD-10 - M47.812) 12/15/2023 Hematochezia (ICD-10 - K92.1) Diagnostic colonoscopy today 12/15/2023 Chronic diarrhea (ICD-10 - K52.9) Diagnostic colonoscopy today 06/08/2024 Muscle weakness (ICD-10 - M62.81) 06/08/2024 Allodynia (ICD-10 - R20.8) 06/11/2024 Lumbar spondylolysis (ICD-10 - M43.06) 12/15/2023 Gastroesophageal reflux disease, unspecified whether esophagitis present (ICD-10 - K21.9) Diagnostic EGD today. 10/27/2023 Gastroesophageal reflux disease, unspecified whether esophagitis present (ICD-10 - K21.9) Discussion and Plan: The patient has the prerequisite risk factors for the development of esophageal cancer. I have discussed the options of diagnostic testing with their advantages and disadvantages. Surveillance EGD with possible dilation and biopsy is recommended. Risk and Benefits: The benefits, risks, and complications were presented tot he patient. The patient is aware of the risk of bleeding, perforation, and anesthetic complications related to the procedure. Ample time was given to answer all questions. Instructions given for the prep. Heartburn Hints: Make these lifestyle and dietary changes: Avoid fried and fatty foods (such as [place] fries and other fast-food items) and spicy foods. Avoid chocolate (including candy bars, chocolate shakes, cupcakes, etc.) Avoid coffee, caffeine-containing beverages, and alcohol Avoid citrus fruits and juices, tomato products (spaghetti sauce), and pepper Reduce your portions at mealtimes (less food in your stomach may mean less chance for reflux) Eat meals 2-3 hours before going to sleep Lose excess weight if you are overweight, it may lesson your symptoms Quit smoking (smoking weakens the valve between the esophagus and the stomach, increasing the chance for reflux) Raise the head of your bed with 6-inch blocks; gravity will help minimize reflux of stomach contents into the esophagus (Note: Do not use extra pillows to elevate your head. This can increase pressure on your abdomen) Avoid tight clothing and belts. Encouraged Mr Ardon to get stools studies and labs done. Follow antidiarrhea measures and antireflux measures. Dr Vizcaino is scheduled to perform and egd and colonoscopy. He will make treatment and follow up decisions based on findings. 10/27/2023 Early satiety (ICD-10 - R68.81) Encouraged Mr Ardon to get stools studies and labs done. Follow antidiarrhea measures and antireflux measures. Dr Vizcaino is scheduled to perform and egd and colonoscopy. He will make treatment and follow up decisions based on findings. 06/08/2024 Cervical spondylosis (ICD-10 - M47.812) 06/11/2024 Lumbar spondylosis (ICD-10 - M47.816) 06/08/2024 Lumbar spondylolysis (ICD-10 - M43.06) 12/15/2023 History of hematemesis (ICD-10 - Z87.19) Diagnostic EGD today. 10/27/2023 History of hematemesis (ICD-10 - Z87.19) Encouraged Mr Ardon to get stools studies and labs done. Follow antidiarrhea measures and antireflux measures. Dr Vizcaino is scheduled to perform and egd and colonoscopy. He will make treatment and follow up decisions based on findings. 06/08/2024 Lumbar spondylosis (ICD-10 - M47.816) 06/08/2024 Other chronic pain (ICD-10 - G89.29) 06/08/2024 Neck pain (ICD-10 - M54.2) 06/08/2024 Other MRI cervical spine -02/22/2024 -disc degeneration and spondylosis present at C3-4, C4-5, C5-6 with vertebral height loss at C5. There is loss of lordosis of the cervical spine. There is no notable central canal or foraminal stenosis. CT abdomen/pelvis -09/29/2023 -lumbar disc degeneration and spondylosis in the lower lumbar spine with a severely angled sacral slope and spondylolysis bilaterally of L5 and mild spondylolisthesis of L5-S1. After discussion with the patient, he presents due to chronic and progressive worsening of generalized weakness and pain throughout his body. He reports symptom onset in 2019. He reports now that his strength has greatly weakened. He reports he can perform activities or lift items but is diffusely weak following this. He reports pain over his entire body including the upper extremities, chest/abdomen, and bilateral legs. He reports the pains are aches as well as burning sensations. He denies any focal sensations or distributional symptoms. MRI of the cervical spine shows loss of lordosis of the cervical spine and some disc degeneration with vertebral height loss at C5. CT of the abdomen/pelvis shows lumbar spondylolysis with mild spondylolisthesis of L5-S1. However, there is no notable neural compression. MRI of the brain is unrevealing for notable pathology. He has undergone reported extensive evaluation and workup regarding the symptoms with rheumatology with Dr. Christine as well as with [facility]. After extensive discussion, he wishes to pursue referral to academic center with referral to [facility] rheumatology for continued evaluation and workup. I do not see any neurologic cause for his diffuse symptoms regarding the brain, cervical spine, or lumbar spine. We will obtain cervical and lumbar radiographs including flexion/extension films. He will follow-up with us after obtaining these. He will also attempt to obtain previous records of his prior workup. We will try to obtain these as well. I spent 60 minutes in the care of this patient including approximately 45 minutes of [id number] time for interview, examination, and discussion/counseli ng, as well as approximately 15 minutes in documentation and imaging review and documentation preparation. Plan Of Treatment Pending Test Test Name Order Date Culture Stool 69817, 34088, 55275, 05643 , 19519 01/20/2023 Giardia/Cryptosporidium Screen 34895, 87 329 01/20/2023 Fecal Leukocyte 55828 01/20/2023 CBC w\ Auto Diff 11317 01/20/2023 O & P Stool 90127, 93410 01/20/2023 CDiff PCR Rfx C diff Toxin NAP/EPI 88389 , 62178 01/20/2023 Calprotectin Fecal 62033 01/20/2023 CT Abdomen, Pelvis w/ + w/o Contrast-741 78 01/20/2023 Diagnostic Colonoscopy-19594 10/27/2023 EGD, Upper GI Diagnostic-14693 4 Future Test Test Name Order Date Cervical Spine w/ Obl/Flex/Ext Comp-7205 2 06/11/2024 Lumbosacral Spine Comp w/ Bending-69000 06/11/2024 Insurance Providers Payer Name Payer Address Payer Phone Subscriber Number Group Number Insured Name Patient Relationship to Insured Coverage Start Date Coverage End Date [employer] [place] [address] [place] [address] [id number] JAELYN ARDON Self - patient is the insured MD Medicaid [address] [place] [id number] [phone] [id number] JAELYN ARDON Self - patient is the insured Medical (General) History Medical History History ICD Code chicken pox back trouble hemorrhoids asthma anxiety depression hypothyroidism kidney stones autoimmune disease urinary retention Surgical History Surgery Date(Month/Year) tendon repair on left hand Endoscopy Finger surgery Hospitalization History Reason Date(Month/Year) see surg hx
--- OUTSIDE RECORDS SUMMARY | 2024-10-07 19:29 | XMS_ITS | Encounter Summary ---
Author Organization [facility] Address [address] [place] [address] Care Team Providers Care Child Care Name Role Phone Klaudia Kelsey APRN Primary Care Provider Encounter Details Date Type Department Care Team (Late Contact Info) Description 07/12/2024 Outside Records [facility] [address] [facility] [place] [address] Interface, Provider Social History Tobacco Use Types Packs/Day Years Used Date Smoking Tobacco: Never Assessed Sex and Gender Information Value Date Recorded Sex Assigned at Not on file Legal Sex Male 11:14 AM CDT Gender Identity Not on file Sexual Orientation Not on file documented as of this encounter Plan of Treatment Upcoming Encounters Date Type Department Care Team (Late Contact Info) Description 10/31/2024 8:00 AM CDT Office Visit Neurology Clinic [address] [place] [id number] Stephanie Connelly, TIRSO, [employer] [address] [place] [address] Shaan Spence MD [address] [facility] [address] [place] [address] documented as of this encounter Visit Diagnoses Not on filedocumented in this encounter Care Teams Child Care Relationship Specialty Start Date End Date Klaudia Kelsey APRN [address] [place] [address] PCP - General Nurse Practitioner 07/18/24 documented as of this encounter
--- OUTSIDE RECORDS SUMMARY | 2024-10-07 19:29 | XMS_ITS | Clinical Summary ---
Author Organization [facility] Address [address] [place] [address] Care Team Providers Care Lead Custodian Name Role Phone Laure Klaudia CHAHAL Primary Care Provider Allergies Active Allergy Reactions Criticality Noted Date Comments Cefaclor Hives,Rash Low 07/18/2024 as a Medications levothyroxine (SYNTHROID) 75 MCG tablet 06/21/2024 Active venlafaxine (EFFEXOR-XR) 75 MG 24 hr cap 06/28/2024 Active diazePAM (VALIUM) 5 MG tablet Take two tablets (10 mg) by mouth every 6 (six) hours as needed. Active ARIPiprazole (ABILIFY) 10 MG tablet Take one tablet (10 mg) by mouth daily. Active methylphenidate HCl 36 MG CR tablet 06/28/2024 Active pregabalin (LYRICA) 100 MG capsule two capsules (200 mg) 2 (two) times a day. 07/10/2024 Active methotrexate 2.5 MG tablet 07/10/2024 Activ e baclofen (LIORESAL) 20 MG tablet one tablet (20 mg) 3 (three) times a day. 07/13/2024 Active hydroxychloroqu ine (PLAQUENIL) 200 mg tablet one tablet (200 mg) 2 (two) times a day. 06/04/2024 Active pantoprazole (PROTONIX) 40 MG tablet one tablet (40 mg) daily. 06/21/2024 Active Encounters Date Type Department Care Team Description 09/18/2024 Telephone [facility] [address] [place] [phone] Jessica Reddy RN Appointment / Referral / Paperwork 08/08/2024 Telephone [facility] [address] [place] [address] Kirstin Harden MD requesting clarification 08/02/2024 Telephone [facility] [address] [place] [address] Jose Mcmahan MA call back 08/02/2024 Telephone [facility] [address] [place] [address] Jose Mcmahan MA Appointment / Referral / Paperwork 07/23/2024 Telephone [facility] [address] [place] [address] Rico Chan RN Question / Advice 07/18/2024 9:32 AM CDT - 07/18/2024 11:59 PM CDT Hospital Encounter [facility] Diagnostic Radiology Department [address] [place] [address] [phone] Kirstin Harden MD Polyarthralgia Discharge Disposition: Home or Self Care 07/18/2024 9:32 AM CDT - 07/18/2024 11:59 PM CDT Hospital Encounter [facility] Diagnostic Radiology Department [address] [place] [address] [phone] Kirstin Harden MD Polyarthralgia Discharge Disposition: Home or Self Care 07/18/2024 9:32 AM CDT - 07/18/2024 11:59 PM CDT Hospital Encounter [facility] Diagnostic Radiology Department [address] [place] [address] [phone] Kirstin Harden MD Other form of dyspnea Discharge Disposition: Home or Self Care 07/18/2024 8:00 AM CDT Office Visit [facility] [address] [place] [address] Kirstin Harden MD Polymyalgia (HCC) (Primary Dx); Other form of dyspnea; Polyarthralgia; Other chronic pain; History of rheumatoid arthritis 07/18/2024 Travel 07/12/2024 Outside Records [facility] [address] [facility] [place] [phone] Interface, Provider from Last 3 Months Social History Tobacco Use Types Packs/Day Years Used Date Smoking Tobacco: Former Cigarettes Passive Smoke Exposure: Past Smokeless Tobacco: Never Alcohol Use Standard Drinks/Week Comments Not Currently 0 (1 standard drink = 0.6 oz pur e alcohol) B1300 Health Literacy Answer Date Recor ded How often do you need to hav e someone help you when you read instructions, pamphlets, or other written material from your doctor or pharmacy? Never 07/18/2024 Sex and Gender Information Value Date Recorded Sex Assigned at Not on file Legal Sex Male 11:14 AM CDT Gender Identity Not on file Sexual Orientation Not on file Last Filed Vital Signs Vital Sign Reading Time Taken Comments Blood Pressure 129/83 07/18/2024 8:01 AM CDT Pulse 86 07/18/2024 7:56 AM CDT Temperature 36.7 C (98.1 F) 07/18/2024 7:56 AM CDT Respiratory Rate - - Oxygen Saturation 98% 07/18/2024 7:56 AM CDT Inhaled Oxygen Concentration - - Weight 127.9 kg (282 lb) 07/18/2024 7:56 AM CDT Height 172.7 cm (5' 8 ) 07/18/2024 7:56 AM CDT Body Mass Index 42.88 07/18/2024 7:56 AM CDT Plan of Treatment Upcoming Encounters Date Type Department Care Team (Late st Contact Info) Description 10/31/2024 8:00 AM CDT Office Visit Neurology Clinic [address] [place] [phone] Stephanie Connelly, [employer]PECTOR, PATIENT RELATIONS LIAISON [address] [place] [address] Shaan Spence MD [address] [facility] [address] [place], [place] [phone] Health Maintenance Due Date Last Done Comments Hepatitis C Screening 1991 Anxiety Screening 1999 HIV Screening 2006 Depression Screening 2009 Hepatitis B Vaccine (1 of 3 - 19+ 3-dose series) 2010 Pneumococcal Vaccine 0-50 ye ars (1 of 2 - PCV) 2010 TDAP/DTaP/TD Vaccines (1 - Tdap) 2010 COVID-19 Vaccine (2 - Modern a risk series) 01/23/2023 12/26/2022 Influenza Series (#1) 2024 12/06/2022 Meningococcal B Vaccine Aged Out No l onger eligible based on patient's age to complete this topic Procedures Procedure Name Priority Date/Time Associated Diagnosis Comments XR KNEE BILATERAL AP LATERAL AND SUNRISE Routine 07/18/2024 10:19 AM CDT Polyarthralgia XR CHEST PA AND LATERAL Routine 07/18/2024 10:18 AM CDT Other form of dyspnea XR PELVIS W LATERAL HIP BILATERAL Routine 07/18/2024 10:18 AM CDT Polyarthralgia SS-B Routine 07/18/2024 9:17 AM CDT History of rheumatoid arthritis SS-A Routine 07/18/2024 9:17 AM CDT History of rheumatoid arthritis ALDOLASE Routine 07/18/2024 9:17 AM CDT Muscle weakness (generalized) KATLYN-1 AB, IGG Routine 07/18/2024 9:17 AM CDT Muscle weakness (generalized) CK Routine 07/18/2024 9:17 AM CDT Muscle weakness (generalized) COMPREHENSIVE METABOLIC PANEL Routine 07/18/2024 9:17 AM CDT Muscle weakness (generalized) CBC AND DIFFERENTIAL Routine 07/18/2024 9:17 AM CDT Other chronic pain from Last 3 Months Results * X-ray knee bilateral AP lateral and sunrise (07/18/2024 10:19 AM CDT) Anatomical Region Laterality Modality Knee Radiographic Hue ging Impressions 07/18/2024 3:42 PM CDT FINDINGS AND IMPRESSION: Bilateral knees: Joint spaces are well maintained. There is no fracture or dislocation. No joint effusion or loose bodies. Patella tracks centrally. Narrative 07/18/2024 3:42 PM CDT CLINICAL INDICATION: chronic bilateral knee pain PROCEDURE: XR KNEE BILATERAL AP LATERAL AND SUNRISE COMPARISON: None Procedure Note Felipe Mann MD - 07/18/2024 CLINICAL INDICATION: chronic bilateral knee pain PROCEDURE: XR KNEE BILATERAL AP LATERAL AND SUNRISE COMPARISON: None IMPRESSION: FINDINGS AND IMPRESSION: Bilateral knees: Joint spaces are well maintained. There is no fracture or dislocation. No joint effusion or loose bodies. Patella tracks centrally. at15:42:22 Kirtsin Harden MD IMG DIAGNOSTIC IMAGING ORD ERABLES Final Result * X-ray chest PA and lateral (07/18/2024 10:18 AM CDT) Anatomical Region Laterality Modality Chest Radiographic Hue ging Impressions 07/18/2024 10:20 AM CDT No acute cardiopulmonary findings. Narrative 07/18/2024 10:20 AM CDT EXAM DESCRIPTION: XR CHEST PA AND LATERAL HISTORY: worsening dyspnea FINDINGS: Two views. The cardiac silhouette, mediastinum, and pulmonary vasculature are within normal limits. No hilar enlargement. The lungs are clear. No pleural effusions or tracheal displacement. Procedure Note Jose Patrick MD - 07/18/2024 EXAM DESCRIPTION: XR CHEST PA AND LATERAL HISTORY: worsening dyspnea FINDINGS: Two views. The cardiac silhouette, mediastinum, and pulmonary vasculature are within normal limits. No hilar enlargement. The lungs are clear. No pleural effusions or tracheal displacement. IMPRESSION: No acute cardiopulmonary findings. Result [facility] Kirstin Harden MD [facility] DIAGNOSTIC IMAGING ORD ERABLES Final Result * X-ray pelvis with lateral hip bilateral (07/18/2024 10:18 AM CDT) Anatomical Region Laterality Modality Pelvis Radiographic Hue ging Narrative 07/18/2024 3:47 PM CDT XR PELVIS W LATERAL HIP BILATERAL Comparison: None available Findings and Impression: There is mild bilateral hip osteoarthritis with cam morphology of the femoral head neck junctions. Pubic symphysis and sacroiliac joints are normally aligned. No acute fracture or dislocation is seen. Procedure Note Ronda Sanchez MD - 07/18/2024 XR PELVIS W LATERAL HIP BILATERAL Comparison: None available Findings and Impression: There is mild bilateral hip osteoarthritis with cam morphology of the femoral head neck junctions. Pubic symphysis and sacroiliac joints are normally aligned. No acute fracture or dislocation is seen. Result [facility] Kirstin Harden MD [facility] DIAGNOSTIC IMAGING ORD ERABLES Final Result * SS-B (07/18/2024 9:17 AM CDT) SS-B <0.2 <=0.9 AI 07/18/2024 11:59 AM CDT [facility] Serum 07/18/2024 9:17 AM CDT 07/18/2024 9:37 AM CDT Narrative [facility] - 07/18/2024 11:59 AM CDT Negative <1.0 Positive >=1.0 This assay was performed using the Equiendo BioPlex immunoassay method. us Kirstin Harden MD LAB BLOOD ORDERABLES Final Result [facility] [address] [place] [address], * SS-A (07/18/2024 9:17 AM CDT) SS-A <0.2 <=0.9 AI 07/18/2024 11:59 AM CDT [facility] Serum 07/18/2024 9:17 AM CDT 07/18/2024 9:37 AM CDT Narrative [facility] - 07/18/2024 11:59 AM CDT Negative <1.0 Positive >=1.0 This assay was performed using the Equiendo BioPlex immunoassay method. Kirstin Harden MD LAB BLOOD ORDERABLES Final Result Performing Organization Address [facility] Co de Phone Number [facility] [address] [place] [address], * KATLYN-1 Ab, IgG (07/18/2024 9:17 AM CDT) Pathologist [facility] Katlyn-1 <0.2 <=0.9 AI 07/18/2024 11:58 AM CDT [facility] Serum 07/18/2024 9:17 AM CDT 07/18/2024 9:37 AM CDT Narrative [facility] - 07/18/2024 11:58 AM CDT Negative <1.0 Positive >=1.0 This assay was performed using the Equiendo BioPlex immunoassay method. us Kirstin Harden MD LAB BLOOD ORDERABLES Final Result Performing Organization Address [facility] Co de Phone Number [facility] [address] [place] [address], * (ABNORMAL) Aldolase, Serum (07/18/2024 9:17 AM CDT) Pathologist [facility] Aldolase 12.3(H) 1.2 - 7.6 U/L 07/19/2024 6:46 PM CDT [facility] Comment: REFERENCE INTERVAL: Aldolase Access complete set of age- and/or gender-specific reference intervals for this test in the [facility] Laboratory Test Directory (SquareClock). Performed By: [facility] [employer] [address] [place] [address] Clinical Rn Liaison: Austyn Wilson MD, PhD CLIA Number: [id number] Blood Venipuncture / Unknown 07/18/2024 9:17 AM CDT 07/18/2024 9:37 AM CDT us Kirstin Harden MD LAB BLOOD ORDERABLES Final Result [facility] [employer] [address] [place] [address], [place] [phone] * (ABNORMAL) CBC (With Diff) (07/18/2024 9:17 AM CDT) WBC 7.51 3.60 - 9.50 K/uL 07/18/2024 9:48 AM CDT [facility] RBC 4.50 4.50 - 5.70 M/uL 07/18/2024 9:48 AM CDT [facility] Hemoglobin 13.6 13.0 - 17.0 g/dL 07/18/2024 9:48 AM CDT [facility] Hematocrit 40.5 40.0 - 50.0 % 07/18/2024 9:48 AM CDT [facility] MCV 90.0 80.0 - 100.0 fL 07/18/2024 9:48 AM CDT [facility] MCH 30.2 26.0 - 33.0 pg 07/18/2024 9:48 AM CDT [facility] MCHC 33.6 32.0 - 36.0 g/dL 07/18/2024 9:48 AM CDT [facility] RDW 13.2 12.0 - 15.0 % 07/18/2024 9:48 AM CDT [facility] Platelet 261 150 - 450 K/ L 07/18/2024 9:48 AM CDT [facility] MPV 8.6(L) 9.0 - 13.0 fL 07/18/2024 9:48 AM CDT [facility] ANC 4.8 1.4 - 6.0 K/uL 07/18/2024 9:48 AM CDT [facility] Nucleated RBC 0.0 #/100 WBC 07/18/2024 9:48 AM CDT [facility] Neutrophils, Auto 63.3 35.0 - 65.0 % 07/18/2024 9:48 AM CDT [facility] Lymphs, Auto 30.8 23.0 - 50.0 % 07/18/2024 9:48 AM CDT [facility] Monocytes, Auto 4.7 4.6 - 12.0 % 07/18/2024 9:48 AM CDT [facility] Eosinophils, Auto 0.1(L) 0.5 - 6.5 % 07/18/2024 9:48 AM CDT [facility] Basophils, Auto 0.8 0.1 - 1.1 % 07/18/2024 9:48 AM CDT [facility] Immature Grans, Auto 0.3 0.0 - 0.5 % 07/18/2024 9:48 AM CDT [facility] Neutrophils, Absolute 4.76 1.40 - 6.00 K/uL 07/18/2024 9:48 AM CDT [facility] Lymphocytes, Absolute 2.31 1.20 - 3.40 K/uL 07/18/2024 9:48 AM CDT [facility] Monocytes, Absolute 0.35 0.20 - 1.00 K/uL 07/18/2024 9:48 AM CDT [facility] Eosinophils, Absolute 0.01 0.00 - 0.50 K/uL 07/18/2024 9:48 AM CDT [facility] Basophils, Absolute 0.06 0.00 - 0.07 K/uL 07/18/2024 9:48 AM CDT [facility] Immature Grans, Absolute 0.02 K/uL 07/18/2024 9:48 AM CDT [facility] Blood Venipuncture / Unknown 07/18/2024 9:17 AM CDT 07/18/2024 9:38 AM CDT us Kirstin Harden MD LAB BLOOD ORDERABLES Final Result [facility] [address] [place] [address], * CK (07/18/2024 9:17 AM CDT) Pathologist [facility] CK, TOTAL 384 49 - 397 IU/L 07/18/2024 10:37 AM CDT [facility] Blood Venipuncture / Unknown 07/18/2024 9:17 AM CDT 07/18/2024 9:37 AM CDT Kirstin Harden MD LAB BLOOD ORDERABLES Final Result [facility] [address] [place] [address], * (ABNORMAL) Comprehensive Metabolic Panel (07/18/2024 9:17 AM CDT) [facility] Sodium 140 135 - 145 mmol/L 07/18/2024 10:37 AM CDT [facility] Potassium 4.0 3.5 - 5.1 mmol/L 07/18/2024 10:37 AM CDT [facility] Chloride 102 98 - 107 mmol/L 07/18/2024 10:37 AM CDT [facility] CO2 26 22 - 32 mmol/L 07/18/2024 10:37 AM CDT [facility] BUN 10 6 - 20 mg/dL 07/18/2024 10:37 AM CDT [facility] Creatinine 1.1 0.6 - 1.3 mg/dL 07/18/2024 10:37 AM CDT [facility] eGFR >90.0 mL/min/1.7 3 square meters 07/18/2024 10:37 AM CDT [facility] Calcium 9.1 8.6 - 10.2 mg/dL 07/18/2024 10:37 AM CDT [facility] Glucose 90 70 - 110 mg/dL 07/18/2024 10:37 AM CDT [facility] Albumin 3.6 3.5 - 5.0 g/dL 07/18/2024 10:37 AM CDT [facility] Total Protein Plasma 6.5 6.4 - 8.3 g/dL 07/18/2024 10:37 AM CDT [facility] Comment:Plasma total protein concentrations may be increased in comparison to serum due to the presence of coagulation factors in plasma. Interpret with caution. Alkaline Phosphatase 53 32 - 91 IU/L 07/18/2024 10:37 AM CDT [facility] AST 69(H) 15 - 41 IU/L 07/18/2024 10:37 AM CDT [facility] Bilirubin, Total 0.5 0.2 - 1.2 mg/dL 07/18/2024 10:37 AM CDT [facility] ALT (SGPT) 122(H) 4 - 45 IU/L 07/18/2024 10:37 AM CDT [facility] Blood Venipuncture / Unknown 07/18/2024 9:17 AM CDT 07/18/2024 9:37 AM CDT Narrative [facility] - 07/18/2024 10:37 AM CDT eGFR has been calculated using CKD-EPI Creatinine Equation (2020) which is recommended by the [employer]. GFR Categories in Chronic Kidney Disease (CKD) Category GFR Interpretation: G1 90 or greater Normal or high* G2 60-89 Mild decrease* G3a 45-59 Mild to moderate decrease G3b 30-44 Moderate to severe decrease G4 15-29 Severe decrease G5 14 or less Kidney failure *In the absence of evidence of kidney damage, neither GFR category G1 nor G2 fulfill the criteria for CKD Kidney Int Suppl 2013;3:1-150 Kirstin Harden MD LAB BLOOD ORDERABLES Final Result [facility] [address] [place] [address], from Last 3 Months [facility] Care Teams Lead Custodian Relationship Specialty Start Date End Date Klaudia Kelsey APRN [id number] [place] [address] PCP - General Nurse Practitioner 07/18/24
[2024-10-07 19:35] VITALS: BP 151/120; PULSE 91; RESP 18; TEMP 36.9; O2SAT 94; BMI 39.5
[2024-10-07 19:48] VITALS: BP 147/98; PULSE 70; RESP 16; O2SAT 97
--- NOTE | 2024-10-07 19:48 | XRR_ITS ---
PROCEDURE INFORMATION: Exam: XR Abdomen Exam date and time: 10/07/2024 7:54 PM Age: 34 years old Clinical indication: Constipation TECHNIQUE: Imaging protocol: Radiologic exam of the abdomen. Views: Frontal supine view of the abdomen. 1 View. COMPARISON: 1. CR XR lumbar spine 2-3V* [id number] 03/21/2023 10:13 AM 2. CR XR sacroiliac jts m 3V [id number] 03/21/2023 10:13 AM FINDINGS: Gastrointestinal tract: Unremarkable. No gas-filled dilated bowel loops or evidence of bowel thickening. Bones/joints: Unremarkable. XR/XR KUB portable [id number] IMPRESSION: No acute findings.
[2024-10-07 20:42] LABS: Hematocrit 46.3 % (37-53); Hemoglobin 15.40 g/dL (11.27-16.99); Mean Corpuscular HGB Conc 33.3 g/dL (30-55); Mean Corpuscular Hemoglobin 29.6 pg (27-33); Mean Corpuscular Volume 89.0 fl (82-101); Nucleated Red Blood Cells % 0 %; Platelet Count 268 10^3/cmm (157-399); Red Blood Count 5.20 10^6/uL (3.85-5.65); White Blood Count 7.15 10^3/uL (3.29-11.43)
[2024-10-07 20:58] LABS: Alanine Aminotransferase 30 U/L (0-41); Albumin Level 4.7 g/dL (3.5-5.2); Alkaline Phosphatase 63 U/L (40-130); Anion Gap 17.7 (5-19); Aspartate Amino Transferase 23 U/L (0-40); Blood Urea Nitrogen 6 mg/dL (6-20); Calcium 9.3 mg/dL (8.5-10.5); Carbon Dioxide 23 mmol/L (22-29); Chloride 104 mmol/L (98-107); Creatinine Clr Calc Pharmacy 109.2460; Globulin 2.9 g/dL (1.3-4.6); Glucose 82 mg/dL (65-115); Osmolality Calculated 289 mOsm/kg (285-295); Potassium 3.7 mmol/L (3.5-5.1); Sodium 141 mmol/L (136-145); Total Protein 7.6 g/dL (6.6-8.7)
[2024-10-07 21:00] VITALS: BP 148/88; PULSE 88; RESP 16; O2SAT 100
--- NOTE | 2024-10-07 21:37 | W.ED.ABDPA2 ---
HPI - Abdominal Pain General: Chief Complaint: Abdominal Pain Stated Complaint: Constipated\ABD Time Seen by Provider: 10/07/24 19:22 History of Present Illness: Elliot Lenz presents to the ER with abdominal pain and constipation. He reports having an undiagnosed neurological muscle condition for which he has been taking nhwt-ozs-byxleer cough medicine containing antihistamine and thiamine for pain relief and dissociation for about 8 months. Approximately one week ago, the patient went to [facility] with lower abdominal pain. A CT scan confirmed an umbilical hernia and revealed a full blockage, though the specific diagnosis was not communicated to the patient. His primary care provider prescribed MiraLax and fiber, which he has been taking for about 3 days, but reports it has led to water retention and floating without passing stool. The patient states he has not had a substantial bowel movement in about 3 weeks, only passing small amounts of mucus daily. He also mentions blood in his stool. He reports experiencing nausea but no vomiting, and has good control over it. The patient describes having chills and possibly a fever (though not measured) along with a migraine, nausea, and malaise, which coincided with the onset of his current symptoms. He also mentions having hypothyroidism, for which he takes 75 micrograms of levothyroxine, with thyroid levels checked about 3 months ago and reported as normal. The patient acknowledges taking an opioid once on the day of the visit but states he does not take opioids frequently. He reports his umbilical hernia is easily reducible. Related Data Home Medications ?Medication ?Instructions ?Recorded ?Confirmed acetaminophen 500 mg tablet 1,000 mg PO QID PRN 03/21/23 06/28/23 (Tylenol Extra Strength) aripiprazole 10 mg tablet (Abilify) 10 mg PO DAILY 03/21/23 06/28/23 diazepam 10 mg tablet 10 mg PO BID 03/21/23 06/28/23 baclofen 20 mg tablet 20 mg PO TID PRN 03/26/24 03/26/24 clindamycin HCl 300 mg capsule mg PO 03/26/24 03/26/24 dextromethorphan HBr PO 03/26/24 03/26/24 escitalopram oxalate 10 mg tablet 15 mg PO DAILY 03/26/24 03/26/24 (Lexapro) levothyroxine 75 mcg tablet mcg PO 03/26/24 03/26/24 methylphenidate HCl 27 mg mg PO 03/26/24 03/26/24 tablet,extended release 24 hr Previous Rx's ?Medication ?Instructions ?Recorded pregabalin 100 mg capsule (Lyrica) 200 mg (2 x 100 mg) PO BID #120 04/02/24 caps hydroxychloroquine 200 mg tablet 200 mg PO BID #60 tabs 06/04/24 folic acid 1 mg tablet 1 mg PO DAILY #30 tabs 08/08/24 methotrexate sodium 2.5 mg tablet See Rx Instructions .Route 08/08/24 .COMPLEX #30 tabs pantoprazole 40 mg tablet,delayed See Rx Instructions PO DAILY #30 08/08/24 release tabs amoxicillin 875 mg-potassium 1 tab PO BID #20 tabs 08/26/24 clavulanate 125 mg tablet Allergies Allergy/AdvReac Type Severity Reaction Status Date / Time cefaclor (From [facility]) Allergy Intermediate hives Verified 08/26/24 17:17 Tetanus Vaccines and Toxoid Allergy Unknown unknown Verified 08/26/24 17:17 Review of Systems General: Reports: 10 or more systems reviewed and unremarkable except in HPI and below PFSH ED PFSH: Medical History (Updated 10/07/24 @ 21:37 by Feliciano Olsen DO) Immunization counseling High risk medication use Inflammatory back pain Seronegative rheumatoid arthritis of both hands Fibromyalgia Hypothyroid Schizo affective schizophrenia Bipolar 1 disorder, depressed Panic attack ADHD Joint pain Surgical History History of dental surgery Family History Other Cancer Denies family history of Lupus (systemic lupus erythematosus) Rheumatoid arthritis Diabetes Autoimmune disease Chronic kidney disease (CKD) Hypertension Social History Smoking and tobacco/nicotine status: never used tobacco/nicotine Alcohol intake: never Substance/Drug Use: never Physical Exam Const: COMMON NORMALS: no acute distress, patient oriented x3, healthy appearing, alert and well nourished HENMT: COMMON NORMALS: normocephalic HEAD & SCALP: normocephalic Eye: COMMON NORMALS: EOMs intact bilaterally Neck/C-Spine: COMMON NORMALS: full ROM and supple Resp: COMMON NORMALS: normal respiratory effort, No retractions and clear to auscultation bilaterally AUSCULTATION: clear to auscultation bilaterally Cardio: COMMON NORMALS: regular rate, regular rhythm, No gallops present (Cardio) and No murmurs present (Cardio) RATE: regular rate RHYTHM: regular rhythm GI: COMMON NORMALS: Soft to palpation and non-tender PALPATION: Yes Soft to palpation Extremity: GENERAL: Yes normal exam except as noted Neuro: COMMON NORMALS: patient oriented x3 SENSORIUM/ORIENTATION: Yes alert Skin: COMMON NORMALS: no rashes or lesions noted GENERAL SKIN EXAM: no rashes or lesions noted Course Vital Signs: Vital signs: Vital Signs Temperature 98.4 F 10/07/24 19:35 Pulse Rate 70 10/07/24 19:48 Respiratory Rate 16 10/07/24 19:48 Blood Pressure 147/98 10/07/24 19:48 Pulse Oximetry 97 10/07/24 19:48 Oxygen Delivery Me thod Room Air 10/07/24 19:48 MDM - Abdominal Pain Medical Decision Making Constipation with possible bowel obstruction: Patient reports no significant bowel movement for 3 weeks, with only small, mucus-like stools. Recent CT scan revealed a full blockage, though the specific diagnosis is unclear. Patient has been taking MiraLax for 3 days without significant improvement. Abdominal exam reveals tenderness but soft abdomen. Differential diagnoses include partial bowel obstruction, severe constipation, or complications related to the umbilical hernia. - Obtain abdominal x-ray to assess for obstruction - Performed enema with minimal relief - Increase MiraLax dosage - Add stimulant laxative to current regimen - Follow up with primary care provider for ongoing management Umbilical hernia: Patient has a confirmed umbilical hernia, diagnosed via CT scan at [facility] approximately one week ago. The hernia is described as easily reducible, suggesting it is not currently incarcerated or strangulated. - Continue monitoring hernia for changes or complications - Educate patient on signs of hernia complications to watch for - Follow up with primary care provider or surgeon for further evaluation and management Lab Data 10/07/24 20:20 10/07/24 20:20 Labs/Radiology: Radiology Impressions KUB X-Ray 10/07/24 19:48 IMPRESSION: No acute findings. Laboratory Results WBC 7.15 10^3/uL (3.29-11.43) 10/07/24 20:20 RBC 5.20 10^6/uL (3.85-5.65) 10/07/24 20:20 Hgb 15.40 g/dL (11.27-16.99) 10/07/24 20:20 Hct 46.3 % (37-53) 10/07/24 20:20 MCV 89.0 fl (82-101) 10/07/24 20:20 MCH 29.6 pg (27-33) 10/07/24 20:20 MCHC 33.3 g/dL (30-55) 10/07/24 20:20 RDW 13.1 % (12.1-15.1) 10/07/24 20:20 Plt Count 268 10^3/cmm (157-399) 10/07/24 20:20 MPV 9.0 fL (7.4-10.4) 10/07/24 20:20 Neut % (Auto) 60.7 % 10/07/24 20:20 Lymph % (Auto) 31.6 % 10/07/24 20:20 [place] % (Auto) 6.6 % 10/07/24 20:20 Eos % (Auto) 0.3 % 10/07/24 20:20 Baso % (Auto) 0.7 % 10/07/24 20:20 Neut # (Auto) 4.34 10^3/uL (1.8-7.7) 10/07/24 20:20 Lymph # (Auto) 2.3 10^3/uL (0.8-4.8) 10/07/24 20:20 [place] # (Auto) 0.5 10^3/uL (0.2-0.9) 10/07/24 20:20 Eos # (Auto) 0.0 10^3/uL (0.0-0.8) 10/07/24 20:20 Baso # (Auto) 0.1 10^3/uL (0.0-0.1) 10/07/24 20:20 Nucleated RBC % (auto) 0 % 10/07/24 20:20 Nucleated RBCs # 0.0 /100WBC 10/07/24 20:20 Sodium 141 mmol/L (136-145) 10/07/24 20:20 Potassium 3.7 mmol/L (3.5-5.1) 10/07/24 20:20 Chloride 104 mmol/L (98-107) 10/07/24 20:20 Carbon Dioxide 23 mmol/L (22-29) 10/07/24 20:20 Anion Gap 17.7 (5-19) 10/07/24 20:20 BUN 6 mg/dL (6-20) 10/07/24 20:20 Creatinine 1.2 mg/dL (0.7-1.2) 10/07/24 20:20 GFR Calculation 69.7 mL/min (90-130) L 10/07/24 20:20 Glucose 82 mg/dL (65-115) 10/07/24 20:20 Calculated Osmolality 289 mOsm/kg (285-295) 10/07/24 20:20 Calcium 9.3 mg/dL (8.5-10.5) 10/07/24 20:20 Total Bilirubin 0.4 mg/dL (0.15-1.2) 10/07/24 20:20 AST 23 U/L (0-40) 10/07/24 20:20 ALT 30 U/L (0-41) 10/07/24 20:20 Alkaline Phosphatase 63 U/L (40-130) 10/07/24 20:20 Total Protein 7.6 g/dL (6.6-8.7) 10/07/24 20:20 Albumin 4.7 g/dL (3.5-5.2) 10/07/24 20:20 Globulin 2.9 g/dL (1.3-4.6) 10/07/24 20:20 All radiology interpretation(s) finalized by discharge Discharge Plan Discharge Patient Disposition: Home Clinical Impression: Constipation Qualifiers: Constipation type: slow transit constipation Qualified Code(s): K59.01 - Slow transit constipation Condition: Stable Prescriptions: No Action aripiprazole [Abilify] 10 mg tablet 10 mg PO DAILY diazepam 10 mg tablet 10 mg PO BID acetaminophen [Tylenol Extra Strength] 500 mg tablet 1,000 mg PO QID PRN clindamycin HCl 300 mg capsule PO baclofen 20 mg tablet 20 mg PO TID PRN levothyroxine 75 mcg tablet PO methylphenidate HCl 27 mg tablet extended release 24hr PO escitalopram oxalate [Lexapro] 10 mg tablet 15 mg PO DAILY dextromethorphan HBr PO pregabalin [Lyrica] 100 mg capsule 200 mg PO BID Qty: 120 5RF hydroxychloroquine 200 mg tablet 200 mg PO BID Qty: 60 0RF folic acid 1 mg tablet 1 mg PO DAILY Qty: 30 0RF pantoprazole 40 mg tablet,delayed release (DR/EC) See Rx Instructions PO DAILY Qty: 30 1RF Rx Instructions: take in AM 30 minutes before meal PO daily; methotrexate sodium 2.5 mg tablet See Rx Instructions .ROUTE .COMPLEX Qty: 30 0RF Dose Instruction: TAKE 6 TABLETS BY MOUTH ONCE A WEEK DIRECTED Rx Instructions: TAKE 6 TABLETS BY MOUTH ONCE A WEEK DIRECTED amoxicillin-pot clavulanate 875-125 mg tablet 1 tab PO BID Qty: 20 0RF Discharge Orders: Discharge ED (Routine); Ordered 10/07/24 Ordered By: Feliciano Olsen Referrals: Klaudia Mullins APRN [Primary Care Provider] Discharge Diet: Advance as tolerated Discharge Activity: Resume usual activity Patient Instructions: Opioid Safety, Pain Management, Patient Portal & Teresa Instructions Activity Restrictions/Additional Instructions: Start increasing your MiraLAX by 1 capful every 3 to 4 days. Use [id number] glycerin suppositories in addition. Increase your daily fiber intake slowly. Follow-up with your primary care provider for further management of your constipation. Return to the emergency department for any new or worsening symptoms. Print Language: Pashto Coding Level of Care Code ED Etiquette Coach for Randall Kebede
[2024-10-07 21:53] VITALS: BP 136/96; PULSE 88; RESP 16; O2SAT 100
== END 2024-10-07 21:54 | disposition home or self-care (01) ==
PROVIDERS: Emergency Provider General Practice; PCP Nurse Practitioner
DX: K59.01 Slow transit constipation (principal)
CPT/HCPCS: 36415; 74018; 80053; 85025; 99284; J9999

== ENCOUNTER 2025-03-06 07:53 | Emergency (ER) | payer MEDICAID, SELFPAY ==
--- OUTSIDE RECORDS SUMMARY | 2019-02-21 02:29 | XMS_ITS | Continuity of Care Document ---
Author Organization [facility] Address [address] [place] [phone] Phone Care Team Providers Care Sourcing Intern Name Role Phone Quinn BEACH, Mc Unavailable Unavailable Advance Directives Directive Yes / No Effective Date File Name No Information Encounters Encounter Description Practice Location Reason(s) For Visit Diagnoses Date Provider Providers Copied on Encounter [facility], [address] [place] [address], [place], [place], [id number] tel:[phone] [address] [place] [address] [facility] No Information 9 Quinn Bentley. [address] [place] [address], [place], [place], [id number] , . tel:[phone] Family History Family Member Type Diagnosis Age At Onset No Information Payers Payer name Insurance type Covered alliance party ID Authoriza tion(s) No Information Social History Type Description Quantity Date Captured Comments Sex Male Smoking Status No Information Chief Complaint And Reason For Visit No Information Reason For Referral Reason For Referral No Information History Of Present Illness Encounter Date Complaint History Of Prese nt Illness No Information Functional Status Date Functional Assessmen t No Information Instructions Date Instruction Additional Infor mation No Information Assessments Type Assessment Date No Information Patient Care Teams Name Effective Dates (start - stop) Status Members No Information
--- OUTSIDE RECORDS SUMMARY | 2024-03-22 03:30 | XMS_ITS ---
Author Organization 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 trial on 01/12/24 Encounters Encounter Location Date Provider Diagnosis [facility] [address] [place] [address] [place] [address] 03/22/2024 Christian Mueller Plan Of Treatment No Information Progress Notes * CHEN ARDONOB:1990 ( 34 yo M)Acc No.[id number]:03/22/2024 Progress Notes Patient: JAELYN DACOSTA Provider: Ariel Mueller MD :1990 A ge:33 Y S ex:Male Date:03/22/2024 Address:[address] [place], [id number] Pcp:ALEISHA Fernandez Subjective: * Chief Complaints: * N p appt after voiding trial on 01/12/24 * Electronic signature of Brooks Mueller MD on 03/06/2025 at 08:00 AM ENVIRONMENTAL COORDINATOR Sign off status: Pending * Provider: Ariel Mueller MD Date: 0 03/22/2024 Generated for Frandy jim/Masoud/eTransmitting on: 05/07/2024 08:00 AM ENVIRONMENTAL COORDINATOR
--- OUTSIDE RECORDS SUMMARY | 2024-04-25 02:40 | XMS_ITS ---
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 voiding trial on 01/12/24 Encounters Encounter Location Date Provider Diagnosis [facility] [address] [place] [address] [place] [address] 04/25/2024 Christian Mueller Plan Of Treatment No Information Progress Notes * CHEN ARDONOB:1990 ( 34 yo M)Acc No.[id number]:04/25/2024 Progress Notes Patient: JAELYN DACOSTA Provider: Ariel Mueller MD :1990 A ge:34 Y S ex:Male Date:04/25/2024 Address:[address], [id number] Pcp:ALEISHA Fernandez Subjective: * Chief Complaints: * N p appt after voiding trial on 01/12/24 Billing Information: * Procedure Codes: * Electronic signature of Brooks Mueller MD on 03/06/2025 at 07:59 AM SHIPPING AND RECEIVING ASSISTANT Sign off status: Pending * Provider: Ariel Mueller MD Date: 0 04/25/2024 Generated for Frandy jim/Masoud/eTransmitting on: 1 05/07/2024 07:59 AM SHIPPING AND RECEIVING ASSISTANT
--- OUTSIDE RECORDS SUMMARY | 2024-06-01 04:30 | XMS_ITS ---
Author Organization [facility] Address [address] [place] [address] Care Team Providers Care Corn Shredder Name Role Phone Klaudia Kelsey APRN Primary Care Provider Unavailable Kathleen Mccoy Unavailable [phone] Ronny Weber [phone] REASON FOR VISIT Cervicalgia Encounters Encounter Location Date Provider Diagnosis [facility] [place] [address] [place] [address] 06/01/2024 Ronny Weber Plan Of Treatment No Information History and Physical Notes * Examination Category Sub-Category Detail Notes Category Not es General Examination GENERAL APPEARANCE: Alert, w ell-hydrated, in no apparent distress HEAD: Normocephalic , atra umatic EYES: PERRL; normal conjun ctiva HEART: Capillary refill les s than 3 seconds LUNGS: No respiratory distr ess NEUROLOGIC: Alert and oriented x 3, cranial nerves II through XII intact, 2+ reflexes throughout, sensation to light touch intact throughout, no Eriberto's, downgoing BabinskisUPPER:DeltoidsBicepsECRTricepsFDPRLLOWER:IliopsoasQuadsTibialis AnteriorHamstringsEHLGastroc/SoleusRL SKIN: No obvious patterned rashes, lesions or pathology. Warm and Dry. Normal Color. MUSCULOSKELETAL: Normal gait. Able to toe, heel, and tandem walk without difficulty. Normal range of motion of the cervical/lumbar spine ORAL CAVITY: Normal , mucosa mois t Progress Notes * CHEN ARDONOB:1990 ( 34 yo M)Acc No.[id number]:06/01/2024 Progress Notes Patient: JAELYN DACOSTA Provider: Faraz Weber MD :1990 A ge:34 Y S ex:Male Date:06/01/2024 Address:[address] [facility] [facility], [id number] Pcp:Klaudia Kelsey, APR N Subjective: * Chief Complaints: * C ervicalgia Objective: * Examination: G eneral Examination: GENERAL APPEARANCE: A lert, well-hydrated, in no apparent distress. HEAD: N ormocephalic , atraumatic. EYES: P ERRL; normal conjunctiva. ORAL CAVITY: N ormal , mucosa moist. SKIN: N o obvious patterned rashes, lesions or pathology. Warm and Dry. Normal Color. HEART: C apillary refill less than 3 seconds. LUNGS: N o respiratory distress. MUSCULOSKELETAL: N ormal gait. Able to toe, heel, and tandem walk without difficulty. Normal range of motion of the cervical/lumbar spine. NEUROLOGIC: < content>Alert and oriented x3, cranial nerves II through XII intact, 2+ reflexes throughout, sensation to light touch intact throughout, no Eriberto's, downgoing Babinskis</content>
<p style= MARGIN: 0in 0in 0pt">
</p><p style= MARGIN: 0in 0in 0pt ><content>UPPER:</content></p><p style= MARGIN: 0in 0in 0pt >
</p><table style= border: 0.5px solid; border-collapse:collapse; position:relative; width:99%; margin-left: 1px; table-layout:fixed; word-break:break-word; -hh-ubua-lgin:break-word; class= xaofn-ju-jmsmb-table ><tbody><tr><td style= border: 0.5px solid; paddinpx; box-sizing:border-box; font-size:13.33px; min-height: 20px; ><p><content></content></p></td><td style= border: 0.5px solid; paddinpx; box-sizing:border-box; font-size:13.33px; min-height: 20px; ><p><content>Deltoids</content></p></td><td style= border: 0.5px solid; paddinpx; box-sizing:border-box; font-size:13.33px; min-height: 20px; ><p><content>Biceps</content></p></td><td style= border: 0.5px solid; paddinpx; box-sizing:border-box; font-size:13.33px; min-height: 20px; ><p><content>ECR</content></p></td><td style= border: 0.5px solid; paddinpx; box-sizing:border-box; font-size:13.33px; min-height: 20px; ><p><content>Triceps</content></p></td><td style= border: 0.5px solid; paddinpx; box-sizing:border-box; font-size:13.33px; min-height: 20px; ><p><content>FDP</content></p></td></tr><tr><td style= border: 0.5px solid; paddinpx; box-sizing:border-box; font-size:13.33px; min-height: 20px; ><p><content>R</content></p></td><td style= border: 0.5px solid; paddinpx; box-sizing:border-box; font-size:13.33px; min-height: 20px; ><p><content></content></p></td><td style= border: 0.5px solid; paddinpx; box-sizing:border-box; font-size:13.33px; min-height: 20px; ><p><content></content></p></td><td style= border: 0.5px solid; paddinpx; box-sizing:border-box; font-size:13.33px; min-height: 20px; ><p><content></content></p></td><td style= border: 0.5px solid; paddinpx; box-sizing:border-box; font-size:13.33px; min-height: 20px; ><p><content></content></p></td><td style= border: 0.5px solid; paddinpx; box-sizing:border-box; font-size:13.33px; min-height: 20px; ><p><content></content></p></td></tr><tr><td style= border: 0.5px solid; paddinpx; box-sizing:border-box; font-size:13.33px; min-height: 20px; ><p><content>L</content></p></td><td style= border: 0.5px solid; paddinpx; box-sizing:border-box; font-size:13.33px; min-height: 20px; ><p><content></content></p></td><td style= border: 0.5px solid; paddinpx; box-sizing:border-box; font-size:13.33px; min-height: 20px; ><p><content></content></p></td><td style= border: 0.5px solid; paddinpx; box-sizing:border-box; font-size:13.33px; min-height: 20px; ><p><content></content></p></td><td style= border: 0.5px solid; paddinpx; box-sizing:border-box; font-size:13.33px; min-height: 20px; ><p><content></content></p></td><td style= border: 0.5px solid; paddinpx; box-sizing:border-box; font-size:13.33px; min-height: 20px; ><p><content></content></p></td></tr></tbody></table><p style= MARGIN: 0in 0in 0pt ><content></content></p><p style= MARGIN: 0in 0in 0pt ><content>LOWER:</content></p><p style= MARGIN: 0in 0in 0pt >
</p><content>Disclaimer: The table may wrap across multiple pages to prevent transfer of incomplete data. Please use judgement when interpreting the table data and contact the sender for clarifications if required.</content><table style= left: 0px !important; border: 0.5px solid; border-collapse:collapse; position:relative; width:99%; margin-left: 1px; table-layout:fixed; word-break:break-word; -nr-kyis-elet:break-word; class= lquxs-cu-uyphz-table ><tbody><tr><td style= border: 0.5px solid; paddinpx; box-sizing:border-box; font-size:13.33px; min-height: 20px;width:100px; min-width:100px; ><p><content></content></p></td><td style= border: 0.5px solid; paddinpx; box-sizing:border-box; font-size:13.33px; min-height: 20px;width:100px; min-width:100px; ><p><content>Iliopsoas</content></p></td><td style= border: 0.5px solid; paddinpx; box-sizing:border-box; font- size:13.33px; min-height: 20px;width:100px; min-width:100px; ><p><content>Quads</content></p></td><td style= border: 0.5px solid; paddinpx; box-sizing:border-box; font-size:13.33px; min-height: 20px;width:100px; min-width:100px; ><p><content>Tibialis Anterior</content></p></td><td style= border: 0.5px solid; paddinpx; box-sizing:border-box; font-size:13.33px; min-height: 20px;width:100px; min-width:100px; ><p><content>Hamstrings</content></p></td><td style= border: 0.5px solid; paddinpx; box-sizing:border-box; font-size:13.33px; min-height: 20px;width:100px; min-width:100px; ><p><content>EHL</content></p></td><td style= border: 0.5px solid; paddinpx; box-sizing:border-box; font- size:13.33px; min-height: 20px;width:100px; min-width:100px; ><p><content>Gastroc/Soleus</content></p></td></tr><tr><td style= border: 0.5px solid; paddinpx; box-sizing:border-box; font- size:13.33px; min-height: 20px;width:100px; min- width:100px; ><p><content>R</content></p></td><td style= border: 0.5px solid; paddinpx; box-sizing:border-box; font- size:13.33px; min-height: 20px;width:100px; min- width:100px; ><p><content></content></p></td><td style= border: 0.5px solid; paddinpx; box-sizing:border-box; font- size:13.33px; min-height: 20px;width:100px; min- width:100px; ><p><content></content></p></td><td style= border: 0.5px solid; paddinpx; box-sizing:border-box; font- size:13.33px; min-height: 20px;width:100px; min- width:100px; ><p><content></content></p></td><td style= border: 0.5px solid; paddinpx; box-sizing:border-box; font- size:13.33px; min-height: 20px;width:100px; min- width:100px; ><p><content></content></p></td><td style= border: 0.5px solid; paddinpx; box-sizing:border-box; font- size:13.33px; min-height: 20px;width:100px; min- width:100px; ><p><content></content></p></td><td style= border: 0.5px solid; paddinpx; box-sizing:border-box; font- size:13.33px; min-height: 20px;width:100px; min-width:100px; ><p><content></content></p></td></tr><tr><td style= border: 0.5px solid; paddinpx; box-sizing:border-box; font-size:13.33px; min-height: 20px;width:100px; min-width:100px; ><p><content>L</content></p></td><td style= border: 0.5px solid; paddinpx; box-sizing:border-box; font-size:13.33px; min-height: 20px;width:100px; min-width:100px; ><p><content></content></p></td><td style= border: 0.5px solid; paddinpx; box-sizing:border-box; font- size:13.33px; min-height: 20px;width:100px; min- width:100px; ><p><content></content></p></td><td style= border: 0.5px solid; paddinpx; box-sizing:border-box; font- size:13.33px; min-height: 20px;width:100px; min- width:100px; ><p><content></content></p></td><td style= border: 0.5px solid; paddinpx; box-sizing:border-box; font- size:13.33px; min-height: 20px;width:100px; min- width:100px; ><p><content></content></p></td><td style= border: 0.5px solid; paddinpx; box-sizing:border-box; font- size:13.33px; min-height: 20px;width:100px; min- width:100px; ><p><content></content></p></td><td style= border: 0.5px solid; paddinpx; box-sizing:border-box; font- size:13.33px; min-height: 20px;width:100px; min-width:100px; ><p><content></content> < /p></td></tr></tbody></table><table style= left: -600px !important; border: 0.5px solid; border-collapse:collapse; position:relative; width:99%; margin-left: 1px; table-layout:fixed; word-break:break-word; -ni-klun-zdxu:break-word; class= yguir-st-ipcna-table ><tbody><tr><td style= border: 0.5px solid; paddinpx; box-sizing:border-box; font-size:13.33px; min-height: 20px;width:100px; min-width:100px; ><p><content></content></p></td><td style= border: 0.5px solid; paddinpx; box-sizing:border-box; font-size:13.33px; min-height: 20px;width:100px; min-width:100px; ><p><content>Iliopsoas</content></p></td><td style= border: 0.5px solid; paddinpx; box-sizing:border-box; font-size:13.33px; min-height: 20px;width:100px; min-width:100px; ><p><content>Quads</content></p></td><td style= border: 0.5px solid; paddinpx; box-sizing:border-box; font- size:13.33px; min-height: 20px;width:100px; min-width:100px; ><p><content>Tibialis Anterior</content></p></td><td style= border: 0.5px solid; paddinpx; box-sizing:border-box; font-size:13.33px; min-height: 20px;width:100px; min-width:100px; ><p><content>Hamstrings</content></p></td><td style= border: 0.5px solid; paddinpx; box-sizing:border-box; font-size:13.33px; min-height: 20px;width:100px; min-width:100px; ><p><content>EHL</content></p></td><td style= border: 0.5px solid; paddinpx; box-sizing:border-box; font- size:13.33px; min-height: 20px;width:100px; min-width:100px; ><p><content>Gastroc/Soleus</content></p></td></tr><tr><td style= border: 0.5px solid; paddinpx; box-sizing:border-box; font- size:13.33px; min-height: 20px;width:100px; min- width:100px; ><p><content>R</content></p></td><td style= border: 0.5px solid; paddinpx; box-sizing:border-box; font- size:13.33px; min-height: 20px;width:100px; min- width:100px; ><p><content></content></p></td><td style= border: 0.5px solid; paddinpx; box-sizing:border-box; font- size:13.33px; min-height: 20px;width:100px; min- width:100px; ><p><content></content></p></td><td style= border: 0.5px solid; paddinpx; box-sizing:border-box; font- size:13.33px; min-height: 20px;width:100px; min- width:100px; ><p><content></content></p></td><td style= border: 0.5px solid; paddinpx; box-sizing:border-box; font- size:13.33px; min-height: 20px;width:100px; min- width:100px; ><p><content></content></p></td><td style= border: 0.5px solid; paddinpx; box-sizing:border-box; font- size:13.33px; min-height: 20px;width:100px; min- width:100px; ><p><content></content></p></td><td style= border: 0.5px solid; paddinpx; box-sizing:border-box; font- size:13.33px; min-height: 20px;width:100px; min-width:100px; ><p><content></content></p></td></tr><tr><td style= border: 0.5px solid; paddinpx; box-sizing:border-box; font-size:13.33px; min-height: 20px;width:100px; min-width:100px; ><p><content>L</content></p></td><td style= border: 0.5px solid; paddinpx; box-sizing:border-box; font-size:13.33px; min-height: 20px;width:100px; min-width:100px; ><p><content></content></p></td><td style= border: 0.5px solid; paddinpx; box-sizing:border-box; font-size:13.33px; min-height: 20px;width:100px; min-width:100px; ><p><content></content></p></td><td style= border: 0.5px solid; paddinpx; box-sizing:border-box; font-size:13.33px; min-height: 20px;width:100px; min-width:100px; ><p><content></content></p></td><td style= border: 0.5px solid; paddinpx; box-sizing:border-box; font-size:13.33px; min-height: 20px;width:100px; min-width:100px; ><p><content></content></p></td><td style= border: 0.5px solid; paddinpx; box-sizing:border-box; font-size:13.33px; min-height: 20px;width:100px; min-width:100px; ><p><content></content></p></td><td style= border: 0.5px solid; paddinpx; box-sizing:border-box; font-size:13.33px; min-height: 20px;width:100px; min-width:100px; ><p><content></content> < /p></td></tr></tbody></table>. * Electronic signature of Ronny Weber MD on 03/06/2025 at 08:00 AM PHARMACY TECHNICIAN TRAINEE Sign off status: Pending * Provider: Faraz Weber MD Date: 0 06/01/2024 Generated for Frandy jim/Masoud/Valeria on: 05/07/2024 08:00 AM PHARMACY TECHNICIAN TRAINEE
--- OUTSIDE RECORDS SUMMARY | 2024-11-14 08:00 | XMS_ITS ---
Author Organization [facility] Address [address] [place] [address] Care Team Providers Care Tempering Machine Operator Name Role Phone Klaudia Kelsey APRN Primary Care Provider Unavailable Kathleen Mccoy Unavailable [phone] REASON FOR VISIT Umbilical Hernia-Imaging in [place] Encounters Encounter Location Date Provider Diagnosis [facility] [address] [facility] [place] [address] 11/14/2024 Kathleen Mccoy Plan Of Treatment No Information Progress Notes * CHEN ARDONOB:1990 ( 34 yo M)Acc No.[id number]:11/14/2024 Progress Notes Patient: JAELYN DACOSTA Provider: Faraz Mccoy APRN :1990 A ge:34 Y S ex:Male Date:11/14/2024 Address:[address] [place], [id number] Pcp:ALEISHA Fernandez Subjective: * Chief Complaints: * U mbilical Hernia-Imaging in [facility] Care Plan Details* * Electronic signature of Tutu Smith APRN on 03/06/2025 at 08:00 AM BLOCK CUTTER Sign off status: Pending * Provider: Faraz Mccoy APRN Date: 0 11/14/2024 Generated for Mckennai ng/Faadrieng/eTransmitting on: 1 05/07/2024 08:00 AM BLOCK CUTTER
--- OUTSIDE RECORDS SUMMARY | 2024-12-05 09:00 | XMS_ITS ---
Author Organization [facility] Address [address] [place] [address] Care Team Providers Care Vegetable I Farmworker Name Role Phone Klaudia Kelsey APRN Primary Care Provider Unavailable Kathleen Mccoy Unavailable [phone] REASON FOR VISIT Umbilical Hernia-Imaging in [facility] Medications Medication SIG (Take, Route, Frequency, Duration) Notes Start Date End Date Status duloxetine *Reorder from [facility] for eRx and Interaction Alerts* Not-Taking Gabapentin 300 MG Capsule 1 capsule Orally three times daily Not-Taking Reglan 10 MG Tablet 1 tab Orally once a day; Duration: 1 days 01/20/2023 Not-Taking DULoxetine HCl 60 MG Capsule Delayed Release Particles 1 capsule Orally Once a day Not-Taking Dexmethylphenidate HCl ER 20 MG Capsule Extended Release 24 Hour 1 capsule in the morning Orally Once a day Not-Taking ARIPiprazole 10 MG Tablet 1 tablet Orally Once a day Active Ciprofloxacin HCl 500 MG Tablet TAKE 1 TABLET BY MOUTH TWICE DAILY FOR 7 DAYS Oral; Duration: 7 Days Active Tamsulosin HCl 0.4 MG Capsule TAKE ONE CAPSULE BY MOUTH EVERY DAY Oral; Duration: 30 Days Active Baclofen 20 MG Tablet 1 tablet Administer without regards to meals as needed Orally Three times a day Active diazePAM 10 MG Tablet 1 tablet as needed Orally three times daily Active Baclofen *Pick strength-form from [facility] for eRX* Active Levothyroxine *Reorder from [facility] for eRx and Interaction Alerts* Active Advil *Pick strength-form from [facility] for eRX* Active Tylenol *Pick strength-form from [facility] for eRX* Active Gabapentin *Pick strength-form from [facility] for eRX* Active dexmethylphenidate *Reorder from [facility] for eRx and Interaction Alerts* Active ARIPiprazole *[facility] Active diazePAM *[facility]* Active Pantoprazole Sodium 40 MG Tablet Delayed Release 1 tablet Orally Once a day Active Sucralfate 1 GM Tablet 1 tablet on an empty stomach Orally four time daily 10/27/2023 Active Modafinil 100 MG Tablet 1 tablet in the morning Orally Once a day Active Methotrexate Sodium 2.5 MG Tablet 6 tabs every tue Orally Active Metoclopramide HCl 10 MG Tablet 1 tab Orally once; Duration: 1 days 10/27/2023 Active Levothyroxine Sodium 75 MCG Capsule 1 tablet in the morning on an empty stomach Orally Once a day Active Lyrica 200 MG Capsule 2 tablets Orally 2 x a day Active Hydroxychloroquine Sulfate 200 MG Tablet as directed Orally 2 x a day Active Hyoscyamine Sulfate 0.125 MG Tablet 1 tablet as needed Orally every 4 hrs Active Encounters Encounter Location Date Provider Diagnosis [facility] [address] [place] [address] [place] [address] 12/05/2024 Kathleen Mccoy Plan Of Treatment No Information Progress Notes * CHEN ARDONOB:1990 ( 34 yo M)Acc No.[id number]:12/05/2024 Progress Notes Patient: JAELYN DACOSTA Provider: Faraz Mccoy APRN :1990 A ge:34 Y S ex:Male Date:12/05/2024 Address:[address] [place], [place] [id number] Pcp:Klaudia Kelsey, APR N Subjective: * Chief Complaints: * [facility] * Medications: T akingAdvil , Notes to Pharmacist: *Pick strength-form from [facility] for eRX*ARIPiprazole , Notes to Pharmacist: *Pick strength-form from [facility] for eRX*ARIPiprazole 10 MG Tablet 1 tablet Orally Once a day Baclofen , Notes to Pharmacist: *Pick strength-form from [facility] for eRX*Baclofen 20 MG Tablet 1 tablet Administer without regards to meals as needed Orally Three times a day Ciprofloxacin HCl 500 MG Tablet TAKE 1 TABLET BY MOUTH TWICE DAILY FOR 7 DAYS Oral dexmethylphenidate , Notes to Pharmacist: *Reorder from [facility] for eRx and Interaction Alerts*diazePAM , Notes to Pharmacist: *Pick strength-form from [facility] for eRX*diazePAM 10 MG Tablet 1 tablet as needed Orally three times daily Gabapentin , Notes to Pharmacist: *Pick strength-form from [facility] for eRX*Hydroxychloroquine Sulfate 200 MG Tablet as directed Orally 2 x a day Hyoscyamine Sulfate 0.125 MG Tablet 1 tablet as needed Orally every 4 hrs Levothyroxine , Notes to Pharmacist: *Reorder from [facility] for eRx and Interaction Alerts*Levothyroxine Sodium 75 MCG Capsule 1 tablet in the morning on an empty stomach Orally Once a day Lyrica 200 MG Capsule 2 tablets Orally 2 x a day Methotrexate Sodium 2.5 MG Tablet 6 tabs every wed Orally Metoclopramide HCl 10 MG Tablet 1 tab Orally once Modafinil 100 MG Tablet 1 tablet in the morning Orally Once a day Pantoprazole Sodium 40 MG Tablet Delayed Release 1 tablet Orally Once a day Sucralfate 1 GM Tablet 1 tablet on an empty stomach Orally four time daily Tamsulosin HCl 0.4 MG Capsule TAKE ONE CAPSULE BY MOUTH EVERY DAY Oral Tylenol , Notes to Pharmacist: *Pick strength-form from [facility] for eRX*Taking Advil , Notes to Pharmacist: *Pick strength-form from [facility] for eRX*Taking ARIPiprazole , Notes to Pharmacist: *Pick strength-form from [facility] for eRX*Taking ARIPiprazole 10 MG Tablet 1 tablet Orally Once a day Taking Baclofen , Notes to Pharmacist: *Pick strength-form from [facility] for eRX*Taking Baclofen 20 MG Tablet 1 tablet Administer without regards to meals as needed Orally Three times a day Taking Ciprofloxacin HCl 500 MG Tablet TAKE 1 TABLET BY MOUTH TWICE DAILY FOR 7 DAYS Oral Taking dexmethylphenidate , Notes to Pharmacist: *Reorder from [facility] for eRx and Interaction Alerts*Taking diazePAM , Notes to Pharmacist: *Pick strength-form from [facility] for eRX*Taking diazePAM 10 MG Tablet 1 tablet as needed Orally three times daily Taking Gabapentin , Notes to Pharmacist: *Pick strength-form from [facility] for eRX*Taking Hydroxychloroquine Sulfate 200 MG Tablet as directed Orally 2 x a day Taking Hyoscyamine Sulfate 0.125 MG Tablet 1 tablet as needed Orally every 4 hrs Taking Levothyroxine , Notes to Pharmacist: *Reorder from [facility] for eRx and Interaction Alerts*Taking Levothyroxine Sodium 75 MCG Capsule 1 tablet in the morning on an empty stomach Orally Once a day Taking Lyrica 200 MG Capsule 2 tablets Orally 2 x a day Taking Methotrexate Sodium 2.5 MG Tablet 6 tabs every wed Orally Taking Metoclopramide HCl 10 MG Tablet 1 tab Orally once Taking Modafinil 100 MG Tablet 1 tablet in the morning Orally Once a day Taking Pantoprazole Sodium 40 MG Tablet Delayed Release 1 tablet Orally Once a day Taking Sucralfate 1 GM Tablet 1 tablet on an empty stomach Orally four time daily Taking Tamsulosin HCl 0.4 MG Capsule TAKE ONE CAPSULE BY MOUTH EVERY DAY Oral Taking Tylenol , Notes to Pharmacist: *Pick strength-form from [facility] for eRX*Not-TakingDexmethylphenidate HCl ER 20 MG Capsule Extended Release 24 Hour 1 capsule in the morning Orally Once a day duloxetine , Notes to Pharmacist: *Reorder from [facility] for eRx and Interaction Alerts*DULoxetine HCl 60 MG Capsule Delayed Release Particles 1 capsule Orally Once a day Gabapentin 300 MG Capsule 1 capsule Orally three times daily Reglan 10 MG Tablet 1 tab Orally once a day Not-Taking Dexmethylphenidate HCl ER 20 MG Capsule Extended Release 24 Hour 1 capsule in the morning Orally Once a day Not-Taking duloxetine , Notes to Pharmacist: *Reorder from [facility] for eRx and Interaction Alerts*Not-Taking DULoxetine HCl 60 MG Capsule Delayed Release Particles 1 capsule Orally Once a day Not-Taking Gabapentin 300 MG Capsule 1 capsule Orally three times daily Not- Taking Reglan 10 MG Tablet 1 tab Orally once a day Billing Information: * Procedure Codes: Care Plan Details* * Electronic signature of Tutu Smith APRN on 03/06/2025 at 07:59 AM CONVENTION SERVICES MANAGER Sign off status: Pending * Provider: Faraz Mccoy APRN Date: 0 12/05/2024 Generated for Frandy jim/Masoud/Valeria on: 05/07/2024 07:59 AM CONVENTION SERVICES MANAGER
--- OUTSIDE RECORDS SUMMARY | 2025-01-09 07:30 | XMS_ITS ---
Author Organization [facility] Address [address] [place] [address] Care Team Providers Care Distillation Operator Name Role Phone Klaudia Kelsey APRN Primary Care Provider Unavailable Kathleen Mccoy Unavailable [phone] REASON FOR VISIT Umbilical Hernia-Imaging in [facility] Encounters Encounter Location Date Provider Diagnosis [facility] [address] [facility] [place] [address] 01/09/2025 Kathleen Mccoy Plan Of Treatment No Information Progress Notes * DUGLASCHENOB:1990 ( 34 yo M)Acc No.[id number]:01/09/2025 Progress Notes Patient: JAELYN DACOSTA Provider: Faraz Mccoy APRN :1990 A ge:34 Y S ex:Male Date:01/09/2025 Address:[address] [place], [id number] Pcp:ALEISHA Fernandez Subjective: * Chief Complaints: * U mbilical Hernia-Imaging in [facility] Billing Information: * Procedure Codes: Care Plan Details* * Electronic signature of Tutu Smith APRN on 03/06/2025 at 07:59 AM DISTRIBUTION CENTER ASSOCIATE Sign off status: Pending * Provider: Faraz Mccoy APRN Date: Generated for Printi ng/Faxing/eTransmitting on: 05/07/2024 07:59 AM DISTRIBUTION CENTER ASSOCIATE
--- OUTSIDE RECORDS SUMMARY | 2025-03-06 08:00 | XMS_ITS | Patient Health Record ---
Author Organization [facility] Address [address] [place] [address] Care Team Providers Care Shield Runner Name Role Phone Klaudia Kelsey APRN Primary Care Provider Unavailable Kathleen Mccoy Unavailable [phone] Bret Robles Unavailable [phone] Ronny Weber Unavailable [phone] Christian Mueller Unavailable [phone] Eduar Poon Unavailable [phone] Allergies Allergen (clinical drug ingredient) Drug/Non Drug [...] Other chronic pain ( G89.29) Referral Organization [facility] [place] Referring Provider First Name Ronny Referring Provider Last Name Tia Referring Provider Speciality Neurologic al Surgery Referred Provider [facility] Rheumatology [facility] Referred Provider Specialty Rheumatology Referral Priority Routine Medications Medication SIG (Take, Route, Frequency, Duration) Notes Start Date End Date Status diazePAM 10 MG Tablet 1 tablet as needed Orally three times daily Active Lyrica 200 MG Capsule 2 tablets Orally 2 x a day Not-Taking Baclofen 20 MG Tablet 1 tablet Administer without regards to meals as needed Orally Three times a day Active Levothyroxine *Reorder from [employer] for eRx and Interaction Alerts* Not-Taking ARIPiprazole 10 MG Tablet 1 tablet Orally Once a day Active Hyoscyamine Sulfate 0.125 MG Tablet 1 tablet as needed Orally every 4 hrs Not-Taking Hydroxychloroquine Sulfate 200 MG Tablet as directed Orally 2 x a day Not-Taking Gabapentin *Pick strength-form from [employer] for eRX* Not-Taking Gabapentin 300 MG Capsule 1 capsule Orally three times daily Not-Taking DULoxetine HCl 60 MG Capsule Delayed Release Particles 1 capsule Orally Once a day Not-Taking duloxetine *Reorder from [employer] [facility] for eRx and Interaction Alerts* Not-Taking diazePAM *Pick strength-form from [employer] [facility] for eRX* Not-Taking Dexmethylphenidate HCl ER 20 MG Capsule Extended Release 24 Hour 1 capsule in the morning Orally Once a day Not-Taking dexmethylphenidate *Reorder from [employer] [facility] for eRx and Interaction Alerts* Not-Taking Ciprofloxacin HCl 500 MG Tablet TAKE 1 TABLET BY MOUTH TWICE DAILY FOR 7 DAYS Oral; Duration: 7 Days Not-Taking Baclofen *Pick strength-form from [employer] for eRX* Not-Taking Pantoprazole Sodium 40 MG Tablet Delayed Release 1 tablet 1/2 to 1 hour before morning meal Orally Once a day; Duration: 90 days 02/18/2025 Active ARIPiprazole *Pick strength-form from [employer] for eRX* Not-Taking Golytely 236 GM Solution Reconstituted 240ml Orally [id number]; Duration: 1 days 02/18/2025 Active Advil *Pick strength-form from [employer] for eRX* Not-Taking Reglan 10 MG Tablet 1 tablet Orally 30 minutes prior to starting colon prep; Duration: 1 days 02/18/2025 Active Tylenol *Pick strength-form from [employer] for eRX* Not-Taking Tamsulosin HCl 0.4 MG Capsule TAKE ONE CAPSULE BY MOUTH EVERY DAY Oral; Duration: 30 Days Not-Taking Vitamin K2-Vitamin D3 90-125 MCG Capsule as directed Orally Active tiZANidine HCl 4 MG Tablet 1 tablet at bedtime as needed Orally 3 times a day Active Pantoprazole Sodium 40 MG Tablet Delayed Release 1 tablet Orally Once a day Not-Taking Sucralfate 1 GM Tablet 1 tablet on an empty stomach Orally four time daily 10/27/2023 Not-Taking Nortriptyline HCl 25 MG Capsule 1 capsule at bedtime Orally Once a day Active Reglan 10 MG Tablet 1 tab Orally once a day; Duration: 1 days 01/20/2023 Not-Taking Misc Natural Product agmatine Active Modafinil 100 MG Tablet 1 tablet in the morning Orally Once a day Not-Taking Magnesium 400 MG Capsule as directed Orally Active Metoclopramide HCl 10 MG Tablet 1 tab Orally once; Duration: 1 days 10/27/2023 Not-Taking Levothyroxine Sodium 75 MCG Capsule 1 tablet in the morning on an empty stomach Orally Once a day Active Methotrexate Sodium 2.5 MG Tablet 6 tabs every wed Orally Not-Taking Social History Social History Drugs/Alcohol: Social Info [...] W/U Status Risk Notes Problem Chronic pain (46357198) Other chronic pain (G89.29) Active confirmed Problem Chronic pain syndrome (044483931) Chronic pain syndrome (G89.4) Active confirmed Problem Abnormal gait (89894883) Unspecified abnormalities of gait and mobility (R26.9) Active confirmed Problem Gastroesophageal reflux disease without esophagitis (897796412) Gastroesophageal reflux disease without esophagitis (K21.9) Active confirmed Problem Neck pain (44146702) Neck pain (M54.2) Active confirmed Problem Lumbar spondylosis (730844529) Lumbar spondylosis (M47.816) Active confirmed Problem Acquired spondylolisthesis (115708970) Lumbar spondylolysis (M43.06) Active confirmed Problem Cervical spondylosis (205500945) Cervical spondylosis (M47.812) Active confirmed Problem Irritable bowel syndrome (26813758) Irritable bowel syndrome with both constipation and diarrhea (K58.2) Active confirmed Problem Gastroesophageal reflux disease (317767156) Chronic gastroesophageal reflux disease (K21.9) Active confirmed Problem Allodynia (084820569) Allodynia (R20.8) Active confirmed Problem Gastroesophageal reflux disease (877724908) Gastroesophageal reflux disease, unspecified whether esophagitis present (K21.9) Active confirmed Vital Signs Heart Rate 87 /min 02/18/2025 Temperature 97.3 degrees Fahrenheit 02/18/2025 Respiratory Rate 18 /min 06/08/2024 Height-cm 172.72 cm 02/18/2025 Oximetry 97 % 02/18/2025 Blood pressure diastolic 78 mm Hg 02/18/2025 Weight-kg 120.66 kg 02/18/2025 Height 68 in 02/18/2025 Blood pressure systolic 138 mm Hg 02/18/2025 Weight 266 lbs 02/18/2025 BMI 40.44 kg/m2 02/18/2025 Encounters Encounter Location Date Provider Diagnosis [facility] [address] [place] [address] 02/18/2025 Kathleen Mccoy Hematochezia K92.1 ; Hemorrhoids, unspecified hemorrhoid type K64.9 ; Irritable bowel syndrome with both constipation and diarrhea K58.2 ; Abdominal pain of multiple sites R10.85 and Gastroesophageal reflux disease without esophagitis K21.9 [facility] [place] [address] [place] [address] 06/08/2024 Ronny Weber Muscle weakness M62. 81 ; Fatigue, unspecified type R53.83 ; Allodynia R20.8 ; Cervical spondylosis M47.812 ; Lumbar spondylolysis M43.06 ; Lumbar spondylosis M47.816 ; Other chronic pain G89.29 and Neck pain M54.2 [facility] [address] [place] [address] [facility] [address] [place] [address] 02/18/2025 [facility] [place] [address] [place] [address] 06/11/2024 Ronny Weber Cervical spondylosis M47.812 ; Lumbar spondylolysis M43.06 and Lumbar spondylosis M47.816 [facility] [address] [place] [address] 03/21/2024 Christian Mueller Assessments Encounter Date Diagnosis (ICD Code) Assessment Notes Treatment Notes Treatment Clinical Notes Section Notes 02/18/2025 Hematochezia (ICD-10 - K92.1) Recommend diagnostic colonoscopy for further evaluation with endoscopic intervenion as indicated. Colonoscopy procedure, risks, benefits, potential complications, and potential interventions discussed. Bowel preparation was discussed and written instructions provided. Questions answered to apparent satisfaction. Verbalizes understanding. Desires to proceed with the proposed plan. Schedule colonoscopy with Dr. Robles Colonoscopy bowel prep sent to preferred pharmacy and instructions were reviewed with the patient. Advised to avoid any OTC supplements, NSAIDs, and aspirin 3 days prior to endoscopy. Follow-up to be arranged based on endoscopy findings and interventions 02/18/2025 Hemorrhoids, unspecified hemorrhoid type (ICD-10 - K64.9) Colonoscopy from 12/15/2023 and reviewed and noted.External and internal hemorrhoids present on endoscopy.Recommend keeping stools soft and avoiding straining. 06/11/2024 Cervical spondylosis (ICD-10 - M47.812) 06/08/2024 Fatigue, unspecified type (ICD-10 - R53.83) 06/08/2024 Muscle weakness (ICD-10 - M62.81) 06/08/2024 Allodynia (ICD-10 - R20.8) 06/11/2024 Lumbar spondylolysis (ICD-10 - M43.06) 02/18/2025 Irritable bowel syndrome with both constipation and diarrhea (ICD-10 - K58.2) Recommend functional diarrhea measures.No liquids 30 minutes before, during, or 1 hour after meals. No smoothies, milk, ice cream, or soup.Recommend increased dietary fiber and daily fiber supplementation.Jose mmend 15 g of supplemental fiber daily.Recommend gradual increase in fiber up to 15 g daily to avoid constipation and abdominal bloating.Patient education handout provided. Consider elimination of all nonessential medications.Avoid concentrated sweets, juices, and sugary alcohols. 02/18/2025 Abdominal pain of multiple sites (ICD-10 - R10.85) CT of the abdomen pelvis from 10/01/2024 shows no acute process in the abdomen or pelvis. There is a small umbilical hernia containing only fat, unchanged from previous exams. Bilateral spondylolysis of L5 without spondoloisthesis. Abdominal pain may be secondary to irritable bowels. Follow above recommendations for irritable bowel. Diagnositic colonoscopy ordered to evaluate hematochezia. Consider abdominal imaging as appropriate 06/11/2024 Lumbar spondylosis (ICD-10 - M47.816) 06/08/2024 Cervical spondylosis (ICD-10 - M47.812) 06/08/2024 Lumbar spondylolysis (ICD-10 - M43.06) 02/18/2025 Gastroesophageal reflux disease without esophagitis (ICD-10 - K21.9) The patient reports he has been on pantoprazole in the past for his GERD, however his prescription has run out. Prescription for pantoprazole 40 mg daily x 1 year sent to patient's preferred pharmacy.Recommend strict reflux precautions.Follow-u p as needed. 06/08/2024 Lumbar spondylosis (ICD-10 - M47.816) 06/08/2024 [...] referral to academic center with referral to [facility] rheumatology for continued evaluation and workup. I [...] this patient including approximately 45 minutes of [id number] time for interview, examination, and discussion/counselin g, as well as approximately 15 minutes in documentation and imaging review and documentation preparation. Plan Of Treatment Pending Test Test Name Order Date Culture Stool 15016, 24242, 95115, 22106 , 06505 01/20/2023 Giardia/Cryptosporidium Screen 30623, 87 329 01/20/2023 Fecal Leukocyte 11468 01/20/2023 CBC w\ Auto Diff 73291 01/20/2023 O & P Stool 06271, 80047 01/20/2023 CDiff PCR Rfx C diff Toxin NAP/EPI 27868 , 78395 01/20/2023 Calprotectin Fecal 10496 01/20/2023 CT Abdomen, Pelvis w/ + w/o Contrast-741 78 01/20/2023 Diagnostic Colonoscopy-63427 02/18/2025 Diagnostic Colonoscopy-18203 10/27/2023 EGD, Upper GI Diagnostic-97139 4 Future Test Test Name Order Date Cervical Spine w/ Obl/Flex/Ext Comp-7205 2 06/11/2024 Lumbosacral Spine Comp w/ Bending-84157 06/11/2024 Insurance Providers Payer Name Payer Address Payer Phone Subscriber Number Group Number Insured Name Patient Relationship to Insured Coverage Start Date Coverage End Date [employer] [place] Home [address] [place] [address] [id number] JAELYN ARDON Self - patient is the insured [place] Medicaid [address] [place] [address] [id number] JAELYN ARDON Self - patient is the insured Medical (General) History Medical History History ICD Code chicken pox back trouble hemorrhoids asthma anxiety, depression hypothyroidism kidney stones autoimmune disease urinary retention Surgical History Surgery Date(Month/Year) tendon repair on left hand Endoscopy Finger surgery Hospitalization History Reason Date(Month/Year) see surg hx
[2025-03-06 08:01] VITALS: BP 127/83; PULSE 82; RESP 16; TEMP 36.8; O2SAT 93; BMI 31.9
--- OUTSIDE RECORDS SUMMARY | 2025-03-06 08:01 | XMS_ITS | Encounter Summary ---
Author Organization [facility] Address [address] [place] [address] Care Team Providers Care Manager Culture Name Role Phone Klaudia Kelsey APRN Primary Care Provider Encounter Details Date Type Department Care Team (Late st Contact Info) Description 07/12/2024 Outside Records [facility] [address] [facility] [place] [address] Interface, Provider Social History Tobacco Use Types [...] Care Team (Late st Contact Info) Description 06/19/2025 2:30 PM CDT Office Visit Neurology Clinic [address] [place] [address] [phone] Tawanna Yusuf MD [address] [place] [address] documented as of this encounter Visit Diagnoses Not on filedocumented in this encounter Care Teams Manager Culture Relationship Specialty Start Date End Date Klaudia Kelsey APRN [address] [place] [address] PCP - General Nurse Practitioner 07/18/24 documented as of this encounter
--- OUTSIDE RECORDS SUMMARY | 2025-03-06 08:01 | XMS_ITS | Clinical Summary ---
Author Organization [facility] Address [address] [place] [address] Care Team Providers Care Senior Validation Engineer Name Role Phone Laure Klaudia CHAHAL Primary Care Provider Allergies Active Allergy Reactions Criticality Noted Date Comments Cefaclor Hives,Rash Low 07/18/2024 as a infant Medications levothyroxine (SYNTHROID) 75 MCG tablet 06/21/2024 Active ARIPiprazole (ABILIFY) 10 MG tablet Take one tablet (10 mg) by mouth daily. Active baclofen (LIORESAL) 20 MG tablet one tablet (20 mg) 3 (three) times a day. 07/13/2024 Active pantoprazole (PROTONIX) 40 MG tablet one tablet (40 mg) daily. 06/21/2024 Active DULoxetine (CYMBALTA) 60 MG capsule Take one capsule (60 mg) by mouth daily. Active nortriptyline (PAMELOR) 25 MG capsule Take one capsule (25 mg) by mouth at bedtime. 30 capsule 11 12/19/2024 Active tiZANidine (ZANAFLEX) 4 MG capsule Take one capsule (4 mg) by mouth 3 (three) times a day as needed for muscle spasms. 90 capsule 11 12/19/2024 Active methylphenidate HCl (RITALIN) 5 MG tablet Take one tablet (5 mg) by mouth 2 (two) times a day as needed. 30 tablet 01/17/2025 Active Encounters Date Type Department Care Team Description 01/30/2025 5:50 PM ACID WASHER OPERATOR - 01/30/2025 11:59 PM ACID WASHER OPERATOR Hospital Encounter [facility] MRI Department [address] [place] [id number] Zaid Montenegro MD Discharge Disposition: Home or Self Care 01/30/2025 5:50 PM ACID WASHER OPERATOR - 01/30/2025 11:59 PM ACID WASHER OPERATOR Hospital Encounter [facility] MRI Department [address] [place] [id number] Zaid Montenegro MD Discharge Disposition: Home or Self Care 01/30/2025 5:49 PM ACID WASHER OPERATOR Hospital Encounter [facility] MRI Department [address] [place] [id number] Zaid Montenegro MD Muscle spasm; Spasm of muscle; Muscle stiffness; Stiff muscles; Chronic fatigue; Cervicalgia; Headache, unspecified headache type; Lhermitte sign positive; Drops things Discharge Disposition: Home or Self Care 01/30/2025 3:30 PM ACID WASHER OPERATOR Procedure visit [facility]rology [facility] [place] [address] Zaid Montenegro MD Muscle spasm (Primary Dx); Spasm of muscle; Muscle stiffness; Stiff muscles; Chronic fatigue; Cervicalgia; Headache, unspecified headache type; Lhermitte sign positive; Drops things 01/30/2025 Travel 01/17/2025 Orders Only Neurology Clinic [facility] [place] [address] Tawanna Yusuf MD 01/15/2025 Telephone Neurology Clinic [facility] [place] [address] Tawanna Yusuf MD Other 12/19/2024 12:30 PM CDT Office Visit Neurology Clinic [address] [place] [id number] Tawanna Yusuf MD Muscle spasm (Primary Dx); Spasm of muscle; Muscle stiffness; Stiff muscles; Chronic fatigue; Cervicalgia; Headache, unspecified headache type; Lhermitte sign positive; Drops things 12/19/2024 Travel from Last 3 Months Social History Tobacco [...] from your doctor or pharmacy? Never 07/18/2024 AUDIT-C Answer Date Recorded Q1: How often do you have a drink containing alcohol? Never 01/02/2025 Q2: How many drinks containi ng alcohol do you have on a typical day when you are drinking? Patient does not drink Q3: How often do you have si x or more drinks on one occasion? Never 01/02/2025 Overall Financial Resource Strain (CARDIA) Answe r Date Recorded How hard is it for you to pa y for the very basics like food, housing, medical care, and heating? Very hard 01/02/2025 [facility] - Occupational Stress Questionnaire Answer Date Recorded Do you feel stress - tense, restless, nervous, or anxious, or unable to sleep at night because your mind is troubled all the time - these days? Very much 01/02/2025 Exercise Vital Sign Answer Date Recorde d On average, how many days pe r week do you engage in moderate to strenuous exercise (like a brisk walk)? 7 days 01/02/2025 On average, how many minutes do you engage in exercise at this level? 10 min 01/02/2025 Hunger Vital Sign Answer Date Recorded Within the past 12 months, y ou worried that your food would run out before you got the money to buy more. Sometimes true Within the past 12 months, t he food you bought just didn't last and you didn't have money to get more. Sometimes true PRAPARE - Transportation Answer Date Re corded In the past 12 months, has l ack of transportation kept you from medical appointments or from getting medications? Yes 12/13 In the past 12 months, has l ack of transportation kept you from meetings, work, or from getting things needed for daily living? Yes 01/02/2025 Social Connection and Isolation Panel Answer Date Recorded In a typical week, how many times do you talk on the phone with family, friends, or neighbors? Twice a week 01/02/2025 How often do you get together with friends or re latives? Never 01/02/2025 How often do you attend zoroastrianism or quaker serv ices? Never 01/02/2025 Do you belong to any clubs o r organizations such as zoroastrianism groups, unions, fraternal or athletic groups, or school groups? No 01/02/2025 How often do you attend meet ings of the clubs or organizations you belong to? Never 01/02/2025 Are you , , di vorced, , never , or living with a partner? 01/02/2025 Housing Stability Vital Sign Answer Augusto e Recorded In the last 12 months, was t here a time when you were not able to pay the mortgage or rent on time? No 01/02/2025 Number of Times Moved in the Last Year Not on fi le 01/02/2025 Homeless in the Last Year Not on file 2024 Sex and Gender Information Value Date Recorded Sex Assigned at Not on file Legal Sex Male 11:14 AM CDT Gender Identity Not on file Sexual Orientation Not on file Last Filed Vital Signs Vital Sign Reading Time Taken Comments Blood Pressure 136/87 12/19/2024 11:55 AM CDT Pulse 94 12/19/2024 11:55 AM CDT Temperature 35.6 C (96 F) 12/19/2024 11:55 AM CDT Respiratory Rate - - Oxygen Saturation 99% 12/19/2024 11:55 AM CDT Inhaled Oxygen Concentration - - Weight 124.7 kg (275 lb) 12/19/2024 11:55 AM CDT Height 172.7 cm (5' 8 ) 07/18/2024 7:56 AM CDT Body Mass Index 41.81 07/18/2024 7:56 AM CDT Plan of Treatment Upcoming Encounters Date Type Department Care Team (Late st Contact Info) Description 06/19/2025 2:30 PM CDT Office Visit Neurology Clinic [address] [place] [id number] Tawanna Yusuf MD [address] [place] [address] Health Maintenance Due Date Last Done Comments Hepatitis C Screening 1991 Anxiety Screening 1999 HIV Screening 2006 Depression Screening 2009 Hepatitis B Vaccine (1 of 3 - 19+ 3-dose series) 2010 Pneumococcal Vaccine 0-50 ye ars (1 of 2 - PCV) 2010 TDAP/DTaP/TD Vaccines (1 - Tdap) 2010 COVID-19 Vaccine (2 - 2024-2 6 season) 2024 12/26/2022 Influenza Series (#1) 2024 12/06/2022 Meningococcal B Vaccine Aged Out No l onger eligible based on patient's age to complete this topic Procedures Procedure Name Priority Date/Time Associated Diagnosis Comments MRI THORACIC SPINE W WO CONTRAST Routine 01/30/2025 8:06 PM ACID WASHER OPERATOR Muscle spasm Spasm of muscle Muscle stiffness Stiff muscles Chronic fatigue Cervicalgia Headache, unspecified headache type Lhermitte sign positive Drops things MRI CERVICAL SPINE W WO CONTRAST Routine 01/30/2025 8:06 PM ACID WASHER OPERATOR Muscle spasm Spasm of muscle Muscle stiffness Stiff muscles Chronic fatigue Cervicalgia Headache, unspecified headache type Lhermitte sign positive Drops things MRI BRAIN W WO CONTRAST Routine 01/31/20 8:06 PM ACID WASHER OPERATOR Muscle spasm Spasm of muscle Muscle stiffness Stiff muscles Chronic fatigue Cervicalgia Headache, unspecified headache type Lhermitte sign positive Drops things EMG / NERVE CONDUCTION STUDY Routine 01/30/2025 3:17 PM ACID WASHER OPERATOR Muscle spasm Spasm of muscle Muscle stiffness Stiff muscles Chronic fatigue Cervicalgia Headache, unspecified headache type Lhermitte sign positive Drops things ENCEPHALOPATHY, AUTOIMMUNE/PARANEOPLAST IC EVALUATION, SERUM Routine 12/19/2024 2:18 PM CDT Muscle spasm Spasm of muscle Muscle stiffness Stiff muscles Chronic fatigue Cervicalgia Headache, unspecified headache type Lhermitte sign positive Drops things CYCLIC CITRUL PEPTIDE ANTIBODY, IGG Routine 12/19/2024 2:18 PM CDT History of rheumatoid arthritis RHEUMATOID FACTOR Routine 12/19/2024 2:1 8 PM CDT History of rheumatoid arthritis THYROPEROXIDASE AB Routine 12/19/2024 2: 18 PM CDT Muscle spasm Spasm of muscle Muscle stiffness Stiff muscles Chronic fatigue Cervicalgia Headache, unspecified headache type Lhermitte sign positive Drops things ANGIOTENSIN CONVERTING ENZYME Routine 12/19/2024 2:18 PM CDT Muscle spasm Spasm of muscle Muscle stiffness Stiff muscles Chronic fatigue Cervicalgia Headache, unspecified headache type Lhermitte sign positive Drops things ACETYLCHOLINE RECEPTOR, BLOCKING Routine 12/19/2024 2:18 PM CDT Muscle spasm Spasm of muscle Muscle stiffness Stiff muscles Chronic fatigue Cervicalgia Headache, unspecified headache type Lhermitte sign positive Drops things ACETYLCHOLINE RECEPTOR, BINDING Routine 12/19/2024 2:18 PM CDT Muscle spasm Spasm of muscle Muscle stiffness Stiff muscles Chronic fatigue Cervicalgia Headache, unspecified headache type Lhermitte sign positive Drops things ACETYLCHOLINE RECEPTOR, MODULATING Routine 12/19/2024 2:18 PM CDT Muscle spasm Spasm of muscle Muscle stiffness Stiff muscles Chronic fatigue Cervicalgia Headache, unspecified headache type Lhermitte sign positive Drops things ANCA ANTIBODIES Routine 12/19/2024 2:18 PM CDT Muscle spasm Spasm of muscle Muscle stiffness Stiff muscles Chronic fatigue Cervicalgia Headache, unspecified headache type Lhermitte sign positive Drops things from Last 3 Months Results * MRI thoracic spine with and without contrast (01/30/2025 8:06 PM ACID WASHER OPERATOR) Anatomical Region Laterality Modality T-spine Magnetic Resonan ce Impressions 02/06/2025 11:49 AM ACID WASHER OPERATOR BRAIN: Unremarkable noncontrast MRI of the brain. No imaging evidence of demyelinating lesions. CERVICAL AND THORACIC SPINE: No definite imaging evidence of demyelinating lesions. No abnormal postcontrast enhancement. Indeterminate tiny nonenhancing cystic lesion along the left anterolateral margin of the cervical spinal cord at C3 level. This could represent a tiny gliotic focus secondary to remote insult. A tiny chronic demyelinating lesion is less likely. Please correlate with clinical history. Narrative 02/06/2025 11:49 AM ACID WASHER OPERATOR EXAM DESCRIPTION: MRI BRAIN W WO CONTRAST; MRI CERVICAL SPINE W WO CONTRAST; MRI THORACIC SPINE W WO CONTRAST HISTORY: Per order request: Demyelinating disease; ms rule out, concern for sarcoid; Demyelinating disease; Mid-back pain, spondyloarthropathy suspected, xray done; ms rule out, concern for sarcoid COMPARISON: None TECHNIQUE: Multiplanar multisequence pre and post-contrast MRI of the brain was obtained. Multiplanar multisequence pre and post-contrast MRI of the cervical and thoracic spine was obtained. FINDINGS: BRAIN: No acute infarct, intracranial hemorrhage or mass lesion. No abnormal brain parenchymal signal. No abnormal postcontrast enhancement. No acute extra-axial hemorrhage or fluid collection. No midline shift or herniation. Basal cisternal spaces are maintained. Normal ventricular size and configuration. The major vascular flow voids are preserved. The included paranasal sinuses and mastoids are aerated. Bilateral orbits are unremarkable. CERVICAL AND THORACIC SPINE: Mild motion artifacts limit evaluation. VERTEBRAE: Normal height. Chronic subtle superior endplate compression deformity at T11. Minimal vertebral body height loss. No significant posterior cortical retropulsion. ALIGNMENT: Normal. INTERVERTEBRAL DISCS: Disc desiccation and mildly decreased intervertebral disc heights at C3-4 through C5-6 levels. Disc desiccation at T10-11 with decreased intervertebral disc height.. VISUALIZED CORD: There is an indeterminate tiny nonenhancing cystic lesion along the left anterolateral margin of the cervical spinal cord at C3 level. No definite imaging evidence of demyelinating lesions. No abnormal postcontrast enhancement. CRANIOCERVICAL JUNCTION: Normal alignment. PARASPINAL SOFT TISSUES: Normal. VISUALIZED NECK AND CHEST: Normal. Mild multilevel degenerative changes in the cervical spine. Small posterior disc osteophytes at C3-4, C4-5 and C5-6 without significant spinal canal narrowing. Minimal degenerative changes in the thoracic spine without significant spinal canal narrowing. Procedure Note Tyree Sevilla MD - 02/06/2025 EXAM DESCRIPTION: MRI BRAIN W WO CONTRAST; MRI CERVICAL SPINE W WO CONTRAST; MRI THORACIC SPINE W WO CONTRAST HISTORY: Per order request: Demyelinating disease; ms rule out, concern for sarcoid; Demyelinating disease; Mid-back pain, spondyloarthropathy suspected, xray done; ms rule out, concern for sarcoid COMPARISON: None TECHNIQUE: Multiplanar multisequence pre and post-contrast MRI of the brain was obtained. Multiplanar multisequence pre and post-contrast MRI of the cervical and thoracic spine was obtained. FINDINGS: BRAIN: No acute infarct, intracranial hemorrhage or mass lesion. No abnormal brain parenchymal signal. No abnormal postcontrast enhancement. No acute extra-axial hemorrhage or fluid collection. No midline shift or herniation. Basal cisternal spaces are maintained. Normal ventricular size and configuration. The major vascular flow voids are preserved. The included paranasal sinuses and mastoids are aerated. Bilateral orbits are unremarkable. CERVICAL AND THORACIC SPINE: Mild motion artifacts limit evaluation. VERTEBRAE: Normal height. Chronic subtle superior endplate compression deformity at T11. Minimal vertebral body height loss. No significant posterior cortical retropulsion. ALIGNMENT: Normal. INTERVERTEBRAL DISCS: Disc desiccation and mildly decreased intervertebral disc heights at C3-4 through C5-6 levels. Disc desiccation at T10-11 with decreased intervertebral disc height.. VISUALIZED CORD: There is an indeterminate tiny nonenhancing cystic lesion along the left anterolateral margin of the cervical spinal cord at C3 level. No definite imaging evidence of demyelinating lesions. No abnormal postcontrast enhancement. CRANIOCERVICAL JUNCTION: Normal alignment. PARASPINAL SOFT TISSUES: Normal. VISUALIZED NECK AND CHEST: Normal. Mild multilevel degenerative changes in the cervical spine. Small posterior disc osteophytes at C3-4, C4-5 and C5-6 without significant spinal canal narrowing. Minimal degenerative changes in the thoracic spine without significant spinal canal narrowing. IMPRESSION: BRAIN: Unremarkable noncontrast MRI of the brain. No imaging evidence of demyelinating lesions. CERVICAL AND THORACIC SPINE: No definite imaging evidence of demyelinating lesions. No abnormal postcontrast enhancement. Indeterminate tiny nonenhancing cystic lesion along the left anterolateral margin of the cervical spinal cord at C3 level. This could represent a tiny gliotic focus secondary to remote insult. A tiny chronic demyelinating lesion is less likely. Please correlate with clinical history. at11:49:31 us Tawanna Yusuf MD [facility] [place] ORDERABLES Final Resu lt * MRI cervical spine with and without contrast (01/30/2025 8:06 PM ACID WASHER OPERATOR) Anatomical Region Laterality Modality Spine, C-spine Magnetic Resonan ce Impressions 02/06/2025 11:49 AM ACID WASHER OPERATOR BRAIN: Unremarkable noncontrast MRI of the brain. No imaging evidence of demyelinating lesions. CERVICAL AND THORACIC SPINE: No definite imaging evidence of demyelinating lesions. No abnormal postcontrast enhancement. Indeterminate tiny nonenhancing cystic lesion along the left anterolateral margin of the cervical spinal cord at C3 level. This could represent a tiny gliotic focus secondary to remote insult. A tiny chronic demyelinating lesion is less likely. Please correlate with clinical history. Narrative 02/06/2025 11:49 AM ACID WASHER OPERATOR EXAM DESCRIPTION: MRI BRAIN W WO CONTRAST; MRI CERVICAL SPINE W WO CONTRAST; MRI THORACIC SPINE W WO CONTRAST HISTORY: Per order request: Demyelinating disease; ms rule out, concern for sarcoid; Demyelinating disease; Mid-back pain, spondyloarthropathy suspected, xray done; ms rule out, concern for sarcoid COMPARISON: None TECHNIQUE: Multiplanar multisequence pre and post-contrast MRI of the brain was obtained. Multiplanar multisequence pre and post-contrast MRI of the cervical and thoracic spine was obtained. FINDINGS: BRAIN: No acute infarct, intracranial hemorrhage or mass lesion. No abnormal brain parenchymal signal. No abnormal postcontrast enhancement. No acute extra-axial hemorrhage or fluid collection. No midline shift or herniation. Basal cisternal spaces are maintained. Normal ventricular size and configuration. The major vascular flow voids are preserved. The included paranasal sinuses and mastoids are aerated. Bilateral orbits are unremarkable. CERVICAL AND THORACIC SPINE: Mild motion artifacts limit evaluation. VERTEBRAE: Normal height. Chronic subtle superior endplate compression deformity at T11. Minimal vertebral body height loss. No significant posterior cortical retropulsion. ALIGNMENT: Normal. INTERVERTEBRAL DISCS: Disc desiccation and mildly decreased intervertebral disc heights at C3-4 through C5-6 levels. Disc desiccation at T10-11 with decreased intervertebral disc height.. VISUALIZED CORD: There is an indeterminate tiny nonenhancing cystic lesion along the left anterolateral margin of the cervical spinal cord at C3 level. No definite imaging evidence of demyelinating lesions. No abnormal postcontrast enhancement. CRANIOCERVICAL JUNCTION: Normal alignment. PARASPINAL SOFT TISSUES: Normal. VISUALIZED NECK AND CHEST: Normal. Mild multilevel degenerative changes in the cervical spine. Small posterior disc osteophytes at C3-4, C4-5 and C5-6 without significant spinal canal narrowing. Minimal degenerative changes in the thoracic spine without significant spinal canal narrowing. Procedure Note Tyree Sevilla MD - 02/06/2025 EXAM DESCRIPTION: MRI BRAIN W WO CONTRAST; MRI CERVICAL SPINE W WO CONTRAST; MRI THORACIC SPINE W WO CONTRAST HISTORY: Per order request: Demyelinating disease; ms rule out, concern for sarcoid; Demyelinating disease; Mid-back pain, spondyloarthropathy suspected, xray done; ms rule out, concern for sarcoid COMPARISON: None TECHNIQUE: Multiplanar multisequence pre and post-contrast MRI of the brain was obtained. Multiplanar multisequence pre and post-contrast MRI of the cervical and thoracic spine was obtained. FINDINGS: BRAIN: No acute infarct, intracranial hemorrhage or mass lesion. No abnormal brain parenchymal signal. No abnormal postcontrast enhancement. No acute extra-axial hemorrhage or fluid collection. No midline shift or herniation. Basal cisternal spaces are maintained. Normal ventricular size and configuration. The major vascular flow voids are preserved. The included paranasal sinuses and mastoids are aerated. Bilateral orbits are unremarkable. CERVICAL AND THORACIC SPINE: Mild motion artifacts limit evaluation. VERTEBRAE: Normal height. Chronic subtle superior endplate compression deformity at T11. Minimal vertebral body height loss. No significant posterior cortical retropulsion. ALIGNMENT: Normal. INTERVERTEBRAL DISCS: Disc desiccation and mildly decreased intervertebral disc heights at C3-4 through C5-6 levels. Disc desiccation at T10-11 with decreased intervertebral disc height.. VISUALIZED CORD: There is an indeterminate tiny nonenhancing cystic lesion along the left anterolateral margin of the cervical spinal cord at C3 level. No definite imaging evidence of demyelinating lesions. No abnormal postcontrast enhancement. CRANIOCERVICAL JUNCTION: Normal alignment. PARASPINAL SOFT TISSUES: Normal. VISUALIZED NECK AND CHEST: Normal. Mild multilevel degenerative changes in the cervical spine. Small posterior disc osteophytes at C3-4, C4-5 and C5-6 without significant spinal canal narrowing. Minimal degenerative changes in the thoracic spine without significant spinal canal narrowing. IMPRESSION: BRAIN: Unremarkable noncontrast MRI of the brain. No imaging evidence of demyelinating lesions. CERVICAL AND THORACIC SPINE: No definite imaging evidence of demyelinating lesions. No abnormal postcontrast enhancement. Indeterminate tiny nonenhancing cystic lesion along the left anterolateral margin of the cervical spinal cord at C3 level. This could represent a tiny gliotic focus secondary to remote insult. A tiny chronic demyelinating lesion is less likely. Please correlate with clinical history. at11:49:31 us Tawanna Yusuf MD [facility] MRI ORDERABLES Final Resu lt * MRI brain with and without contrast (01/30/2025 8:06 PM ACID WASHER OPERATOR) Anatomical Region Laterality Modality Head Magnetic Resonan ce Impressions 02/06/2025 11:49 AM ACID WASHER OPERATOR BRAIN: Unremarkable noncontrast MRI of the brain. No imaging evidence of demyelinating lesions. CERVICAL AND THORACIC SPINE: No definite imaging evidence of demyelinating lesions. No abnormal postcontrast enhancement. Indeterminate tiny nonenhancing cystic lesion along the left anterolateral margin of the cervical spinal cord at C3 level. This could represent a tiny gliotic focus secondary to remote insult. A tiny chronic demyelinating lesion is less likely. Please correlate with clinical history. Narrative 02/06/2025 11:49 AM ACID WASHER OPERATOR EXAM DESCRIPTION: MRI BRAIN W WO CONTRAST; MRI CERVICAL SPINE W WO CONTRAST; MRI THORACIC SPINE W WO CONTRAST HISTORY: Per order request: Demyelinating disease; ms rule out, concern for sarcoid; Demyelinating disease; Mid-back pain, spondyloarthropathy suspected, xray done; ms rule out, concern for sarcoid COMPARISON: None TECHNIQUE: Multiplanar multisequence pre and post-contrast MRI of the brain was obtained. Multiplanar multisequence pre and post-contrast MRI of the cervical and thoracic spine was obtained. FINDINGS: BRAIN: No acute infarct, intracranial hemorrhage or mass lesion. No abnormal brain parenchymal signal. No abnormal postcontrast enhancement. No acute extra-axial hemorrhage or fluid collection. No midline shift or herniation. Basal cisternal spaces are maintained. Normal ventricular size and configuration. The major vascular flow voids are preserved. The included paranasal sinuses and mastoids are aerated. Bilateral orbits are unremarkable. CERVICAL AND THORACIC SPINE: Mild motion artifacts limit evaluation. VERTEBRAE: Normal height. Chronic subtle superior endplate compression deformity at T11. Minimal vertebral body height loss. No significant posterior cortical retropulsion. ALIGNMENT: Normal. INTERVERTEBRAL DISCS: Disc desiccation and mildly decreased intervertebral disc heights at C3-4 through C5-6 levels. Disc desiccation at T10-11 with decreased intervertebral disc height.. VISUALIZED CORD: There is an indeterminate tiny nonenhancing cystic lesion along the left anterolateral margin of the cervical spinal cord at C3 level. No definite imaging evidence of demyelinating lesions. No abnormal postcontrast enhancement. CRANIOCERVICAL JUNCTION: Normal alignment. PARASPINAL SOFT TISSUES: Normal. VISUALIZED NECK AND CHEST: Normal. Mild multilevel degenerative changes in the cervical spine. Small posterior disc osteophytes at C3-4, C4-5 and C5-6 without significant spinal canal narrowing. Minimal degenerative changes in the thoracic spine without significant spinal canal narrowing. Procedure Note Tyree Sevilla MD - 02/06/2025 EXAM DESCRIPTION: MRI BRAIN W WO CONTRAST; MRI CERVICAL SPINE W WO CONTRAST; MRI THORACIC SPINE W WO CONTRAST HISTORY: Per order request: Demyelinating disease; ms rule out, concern for sarcoid; Demyelinating disease; Mid-back pain, spondyloarthropathy suspected, xray done; ms rule out, concern for sarcoid COMPARISON: None TECHNIQUE: Multiplanar multisequence pre and post-contrast MRI of the brain was obtained. Multiplanar multisequence pre and post-contrast MRI of the cervical and thoracic spine was obtained. FINDINGS: BRAIN: No acute infarct, intracranial hemorrhage or mass lesion. No abnormal brain parenchymal signal. No abnormal postcontrast enhancement. No acute extra-axial hemorrhage or fluid collection. No midline shift or herniation. Basal cisternal spaces are maintained. Normal ventricular size and configuration. The major vascular flow voids are preserved. The included paranasal sinuses and mastoids are aerated. Bilateral orbits are unremarkable. CERVICAL AND THORACIC SPINE: Mild motion artifacts limit evaluation. VERTEBRAE: Normal height. Chronic subtle superior endplate compression deformity at T11. Minimal vertebral body height loss. No significant posterior cortical retropulsion. ALIGNMENT: Normal. INTERVERTEBRAL DISCS: Disc desiccation and mildly decreased intervertebral disc heights at C3-4 through C5-6 levels. Disc desiccation at T10-11 with decreased intervertebral disc height.. VISUALIZED CORD: There is an indeterminate tiny nonenhancing cystic lesion along the left anterolateral margin of the cervical spinal cord at C3 level. No definite imaging evidence of demyelinating lesions. No abnormal postcontrast enhancement. CRANIOCERVICAL JUNCTION: Normal alignment. PARASPINAL SOFT TISSUES: Normal. VISUALIZED NECK AND CHEST: Normal. Mild multilevel degenerative changes in the cervical spine. Small posterior disc osteophytes at C3-4, C4-5 and C5-6 without significant spinal canal narrowing. Minimal degenerative changes in the thoracic spine without significant spinal canal narrowing. IMPRESSION: BRAIN: Unremarkable noncontrast MRI of the brain. No imaging evidence of demyelinating lesions. CERVICAL AND THORACIC SPINE: No definite imaging evidence of demyelinating lesions. No abnormal postcontrast enhancement. Indeterminate tiny nonenhancing cystic lesion along the left anterolateral margin of the cervical spinal cord at C3 level. This could represent a tiny gliotic focus secondary to remote insult. A tiny chronic demyelinating lesion is less likely. Please correlate with clinical history. at11:49:31 Tawanna Yusuf MD IMG MRI ORDERABLES Final Resu lt * EMG / Nerve conduction study (01/30/2025 3:17 PM ACID WASHER OPERATOR) 01/30/2025 3:17 PM ACID WASHER OPERATOR Tawanna Yusuf MD NEUROLOGY ORDERABLES Final Re sult [facility] * ENCEPHALOPATHY, AUTOIMMUNE/PARANEOPLASTIC EVALUATION, SERUM (12/19/2024 2:18 PM CDT) ENCEPHALOPATHY, INTERPRETATION, S SEE COMMENTS 12/27/2024 9:28 AM CDT [facility] Comment: No informative autoantibodies were detected in this evaluation. However, a negative result does not exclude autoimmune encephalopathy, idiopathic or paraneoplastic. Sensitivity and specificity of antibody testing are enhanced by testing both serum and CSF. AMPA-R AB CBA, S Negative Negative 10/16/20 25 9:28 AM CDT [facility] Comment: ADDITIONAL INFORMATION This test was developed and its performance characteristics determined by [facility] in a manner consistent with CLIA requirements. This test has not been cleared or approved by the U.S. Food and Drug Administration. AMPHIPHYSIN AB, S Negative Negative 9:28 AM CDT [facility] Comment: ADDITIONAL INFORMATION This test was developed and its performance characteristics determined by [facility] in a manner consistent with CLIA requirements. This test has not been cleared or approved by the U.S. Food and Drug Administration. Anti-Glial Nuclear Ab, Type 1 Negative Negative 12/27/2024 9:28 AM CDT [facility] Comment: ADDITIONAL INFORMATION This test was developed and its performance characteristics determined by [facility] in a manner consistent with CLIA requirements. This test has not been cleared or approved by the U.S. Food and Drug Administration. ANTI-NEURONAL NUCLEAR AB, TYPE 1 Negative Negative 12/27/2024 9:28 AM CDT [facility] Comment: ADDITIONAL INFORMATION This test was developed and its performance characteristics determined by [facility] in a manner consistent with CLIA requirements. This test has not been cleared or approved by the U.S. Food and Drug Administration. ANTI-NEURONAL NUCLEAR AB, TYPE 2 Negative Negative 12/27/2024 9:28 AM CDT [facility] [employer] Comment: ADDITIONAL INFORMATION This test was developed and its performance characteristics determined by [facility] in a manner consistent with CLIA requirements. This test has not been cleared or approved by the U.S. Food and Drug Administration. ANTI-NEURONAL NUCLEAR AB, TYPE 3 Negative Negative 12/27/2024 9:28 AM CDT [facility] Comment: ADDITIONAL INFORMATION This test was developed and its performance characteristics determined by [facility] in a manner consistent with CLIA requirements. This test has not been cleared or approved by the U.S. Food and Drug Administration. CASPR2-IGG CBA, S Negative Negative 9:28 AM CDT [facility] Comment: ADDITIONAL INFORMATION This test was developed and its performance characteristics determined by [facility] in a manner consistent with CLIA requirements. This test has not been cleared or approved by the U.S. Food and Drug Administration. CRMP-5-IGG, S Negative Negative 12/27/2024 9:28 AM CDT [facility] [employer] Comment: ADDITIONAL INFORMATION This test was developed and its performance characteristics determined by [facility] in a manner consistent with CLIA requirements. This test has not been cleared or approved by the U.S. Food and Drug Administration. RALEIGH-B-R AB CBA, S Negative Negative 2024 9:28 AM CDT [facility] Comment: ADDITIONAL INFORMATION This test was developed and its performance characteristics determined by [facility] in a manner consistent with CLIA requirements. This test has not been cleared or approved by the U.S. Food and Drug Administration. GAD65 AB ASSAY, S 0.00 <=0.02 nmol/L 12/27/2024 9:28 AM CDT [facility] Comment: ADDITIONAL INFORMATION This test was developed and its performance characteristics determined by [facility] in a manner consistent with CLIA requirements. This test has not been cleared or approved by the U.S. Food and Drug Administration. GFAP IFA, S Negative Negative 12/27/2024 9:28 AM CDT [facility] Comment: ADDITIONAL INFORMATION This test was developed and its performance characteristics determined by [facility] in a manner consistent with CLIA requirements. This test has not been cleared or approved by the U.S. Food and Drug Administration. LGI1-IGG CBA, S Negative Negative 9:28 AM CDT [facility] Comment: ADDITIONAL INFORMATION This test was developed and its performance characteristics determined by [facility] in a manner consistent with CLIA requirements. This test has not been cleared or approved by the U.S. Food and Drug Administration. MGLUR1 AB IFA, S Negative Negative 12/28/19 9:28 AM CDT [facility] Comment: ADDITIONAL INFORMATION This test was developed and its performance characteristics determined by [facility] in a manner consistent with CLIA requirements. This test has not been cleared or approved by the U.S. Food and Drug Administration. NIF IFA, S Negative Negative 12/27/2024 9:28 AM CDT [facility] [employer] Comment: ADDITIONAL INFORMATION This test was developed and its performance characteristics determined by [facility] in a manner consistent with CLIA requirements. This test has not been cleared or approved by the U.S. Food and Drug Administration. NMDA-R AB CBA, S Negative Negative 12/28/19 9:28 AM CDT [facility] Comment: ADDITIONAL INFORMATION This test was developed and its performance characteristics determined by [facility] in a manner consistent with CLIA requirements. This test has not been cleared or approved by the U.S. Food and Drug Administration. PURKINJE CELL CYTOPLASMIC AB TYPE 1 Negative Negative 12/27/2024 9:28 AM CDT [facility] Comment: ADDITIONAL INFORMATION This test was developed and its performance characteristics determined by [facility] in a manner consistent with CLIA requirements. This test has not been cleared or approved by the U.S. Food and Drug Administration. PURKINJE CELL CYTOPLASMIC AB TYPE 2 Negative Negative 12/27/2024 9:28 AM CDT [facility] Comment: ADDITIONAL INFORMATION This test was developed and its performance characteristics determined by [facility] in a manner consistent with CLIA requirements. This test has not been cleared or approved by the U.S. Food and Drug Administration. PURKINJE CELL CYTOPLASMIC AB TYPE TR Negative Negative 12/27/2024 9:28 AM T [facility] [employer] Comment: ADDITIONAL INFORMATION This test was developed and its performance characteristics determined by [facility] in a manner consistent with CLIA requirements. This test has not been cleared or approved by the U.S. Food and Drug Administration. SEPTIN-7 IFA, S Negative Negative 9:28 AM CDT [facility] [employer] Comment: ADDITIONAL INFORMATION This test was developed and its performance characteristics determined by [facility] in a manner consistent with CLIA requirements. This test has not been cleared or approved by the U.S. Food and Drug Administration. IFA NOTES None. 12/27/2024 9:28 AM CDT [facility] PDE10A Ab IFA, S Negative Negative 12/28/19 9:28 AM CDT [facility] Comment: ADDITIONAL INFORMATION This test was developed and its performance characteristics determined by [facility] in a manner consistent with CLIA requirements. This test has not been cleared or approved by the U.S. Food and Drug Administration. TRIM46 Ab IFA, S Negative Negative 12/28/19 9:28 AM CDT [facility] Comment: ADDITIONAL INFORMATION This test was developed and its performance characteristics determined by [facility] in a manner consistent with CLIA requirements. This test has not been cleared or approved by the U.S. Food and Drug Administration. Test Performed by: [facility] [place] [address] Curtain Cutter: Kim Alonso Ph.D.; CLIA# [id number] DPPX AB CBA, S Negative Negative 12/27/2024 9:28 AM CDT [facility] Comment: ADDITIONAL INFORMATION This test was developed and its performance characteristics determined by [facility] in a manner consistent with CLIA requirements. This test has not been cleared or approved by the U.S. Food and Drug Administration. IgLON5 CBA, S Negative Negative 12/27/2024 9:28 AM CDT [facility] Comment: ADDITIONAL INFORMATION This test was developed and its performance characteristics determined by [facility] in a manner consistent with CLIA requirements. This test has not been cleared or approved by the U.S. Food and Drug Administration. NEUROCHONDRIN IFA, S Negative Negative 12/27/2024 9:28 AM CDT [facility] Comment: ADDITIONAL INFORMATION This test was developed and its performance characteristics determined by [facility] in a manner consistent with CLIA requirements. This test has not been cleared or approved by the U.S. Food and Drug Administration. Blood LEFT UPPER ARM STRUCTURE / Unknown Butterfly / Unknown 12/19/2024 2:18 PM CDT 12/19/2024 2:35 PM CDT Tawanna Yusuf MD BODY FLUIDS AND STOOLS ORDERA BLES Final Result [facility] [address] [place] [address], * ANCA Antibodies (12/19/2024 2:18 PM CDT) Myeloperoxidase 0 0 - 19 AU/mL 12/21/2024 7:45 AM CDT [facility] Comment: INTERPRETIVE INFORMATION: Myeloperoxidase Abs, IgG 19 AU/mL or Less ......... Negative 20-25 AU/mL .............. Equivocal 26 AU/mL or Greater ...... Positive Approximately 90% of patients with a P-ANCA pattern by IFA have antibodies specific for MPO. Serine PR3 (ANCA) 0 0 - 19 AU/mL 12/21/2024 7:45 AM CDT [facility] Comment: Myeloperoxidase (MPO) Antibodies , IgG and Serine Proteinase 3 (PR3), IgG are both negative; therefore, ANCA IFA testing will not be performed. INTERPRETIVE INFORMATION: Serine Proteinase 3, IgG 19 AU/mL or Less ........ Negative 20-25 AU/mL ............. Equivocal 26 AU/mL or Greater ..... Positive Approximately 85% of patients with a C-ANCA pattern by IFA have antibodies specific for PR3. Performed By: [facility] [address] [place] [address] Corporate Human Resources Manager: Austyn Wilson MD, PhD CLIA Number: [id number] Blood BLOOD / Unknown Butterfly / Unknown 12/19/2024 2:18 PM CDT 12/19/2024 2:35 PM CDT Tawanna Yusuf MD LAB BLOOD ORDERABLES Final Re sult [address] [address], [place] [phone] * Thyroperoxidase Ab (12/19/2024 2:18 PM CDT) Thyroid Peroxidase Ab <0.25 <=9.00 IU/mL 12/21/2024 6:06 AM CDT [facility] Blood LEFT UPPER ARM STRUCTURE / Unknown Butterfly / Unknown 12/19/2024 2:18 PM CDT 12/19/2024 2:34 PM CDT Tawanna Yusuf MD LAB BLOOD ORDERABLES Final Re sult Performing Organization Address [facility] Co de Phone Number [facility] [address] [place] [address], * Cyclic citrul peptide antibody, IgG (12/19/2024 2:18 PM CDT) CCP IgG Antibodies <0.5 0.0 - 2.9 U/mL 12/19/2024 10:41 PM CDT [facility] Blood LEFT UPPER ARM STRUCTURE / Unknown Butterfly / Unknown 12/19/2024 2:18 PM CDT 12/19/2024 2:34 PM CDT Narrative [facility] - 12/19/2024 10:41 PM CDT Negative <3.0 Positive >=3.0 This assay was performed using the [employer] BioPlex immunoassay method. Kirstin Harden MD LAB BLOOD ORDERABLES Final Result Performing Organization Address City/[facility]/ZIP Co de Phone Number [facility] [address] [place] [address], * Acetylcholine Receptor, Blocking Ab. (12/19/2024 2:18 PM CDT) Acetylcholine Receptor Blocking Ab 9 0 - 26 % 12/21/2024 1:55 PM CDT [facility] Comment: INTERPRETIVE INFORMATION: Acetylcholine Blocking Ab Negative ............ 0-26 percent blocking Indeterminate ....... 27-41 percent blocking Positive ............ 42 percent or greater blocking Approximately 85-90 percent of patients with myasthenia gravis (MG) express antibodies to the acetylcholine receptor (AChR), which can be divided into binding, blocking, and modulating antibodies. Binding antibody can activate complement and lead to loss of AChR. Blocking antibody may impair binding of acetylcholine to the receptor, leading to poor muscle contraction. Modulating antibody causes receptor endocytosis resulting in loss of AChR expression, which correlates most closely with clinical severity of disease. Approximately 10-15 percent of individuals with confirmed myasthenia gravis have no measurable binding, blocking, or modulating antibodies. This test was developed and its performance characteristics determined by [facility]. It has not been cleared or approved by the [place] Food and Drug Administration. This test was performed in a CLIA certified laboratory and is intended for clinical purposes. Performed By: [facility] [address] [place] [address] Corporate Human Resources Manager: Austyn Wilson MD, PhD CLIA Number: [id number] Blood LEFT UPPER ARM STRUCTURE / Unknown Butterfly / Unknown 12/19/2024 2:18 PM CDT 12/19/2024 2:35 PM CDT us Tawanna Yusuf MD LAB BLOOD ORDERABLES Final Re sult [facility] [address] [place] [address], * Acetylcholine Receptor, Modulating Ab. (12/19/2024 2:18 PM CDT) Acetylcholine Receptor Modulating Ab 0 <=45 % 12/21/2024 10:59 AM CDT [facility] Comment: INTERPRETIVE INFORMATION: Acetylcholine Modulating Ab Negative .......... 0-45 percent modulating Positive .......... 46 percent or greater modulating Approximately 85-90 percent of patients with myasthenia gravis (MG) express antibodies to the acetylcholine receptor (AChR), which can be divided into binding, blocking, and modulating antibodies. Binding antibody can activate complement and lead to loss of AChR. Blocking antibody may impair binding of acetylcholine to the receptor, leading to poor muscle contraction. Modulating antibody causes receptor endocytosis resulting in loss of AChR expression, which correlates most closely with clinical severity of disease. Approximately 10-15 percent of individuals with confirmed myasthenia gravis have no measurable binding, blocking, or modulating antibodies. This test was developed and its performance characteristics determined by [facility]. It has not been cleared or approved by the [place] Food and Drug Administration. This test was performed in a CLIA certified laboratory and is intended for clinical purposes. Performed By: [facility] [address] [place] [address] Corporate Human Resources Manager: Austyn Wilson MD, PhD CLIA Number: [id number] Blood LEFT UPPER ARM STRUCTURE / Unknown Butterfly / Unknown 12/19/2024 2:18 PM CDT 12/19/2024 2:35 PM CDT Tawanna Yusuf MD LAB BLOOD ORDERABLES Final Re sult [facility] [address] [place] [phone], * Acetylcholine Receptor, Binding Ab. (12/19/2024 2:18 PM CDT) [facility] Acetylcholine Receptor Binding Ab 0.0 0.0 - 0.4 nmol/L 12/21/2024 5:44 PM CDT [facility] Comment: INTERPRETIVE INFORMATION: Acetylcholine Binding Ab Negative ....... 0.0 - 0.4 nmol/L Positive ....... 0.5 nmol/L or greater Approximately 85-90 percent of patients with myasthenia gravis (MG) express antibodies to the acetylcholine receptor (AChR), which can be divided into binding, blocking, and modulating antibodies. Binding antibody can activate complement and lead to loss of AChR. Blocking antibody may impair binding of acetylcholine to the receptor, leading to poor muscle contraction. Modulating antibody causes receptor endocytosis resulting in loss of AChR expression, which correlates most closely with clinical severity of disease. Approximately 10-15 percent of individuals with confirmed myasthenia gravis have no measurable binding, blocking, or modulating antibodies. This test was developed and its performance characteristics determined by [facility]. It has not been cleared or approved by the [place] Food and Drug Administration. This test was performed in a CLIA certified laboratory and is intended for clinical purposes. Performed By: [facility] [address] [place] [address] Corporate Human Resources Manager: Austyn Wilson MD, PhD CLIA Number: [id number] Blood LEFT UPPER ARM STRUCTURE / Unknown Butterfly / Unknown 12/19/2024 2:18 PM CDT 12/19/2024 2:35 PM CDT Tawanna Yusuf MD LAB BLOOD ORDERABLES Final Re sult Performing Organization Address City/[facility]/ZIP Co de Phone Number [address] [address], [place] [phone] * Rheumatoid Factor (12/19/2024 2:18 PM CDT) [facility] Rheumatoid Factor <9.0 <12.5 IU/mL 12/19/2024 8:10 PM CDT [facility] Serum 12/19/2024 2:18 PM CDT 12/19/2024 2:34 PM CDT Kirstin Harden MD LAB BLOOD ORDERABLES Final Result [facility] [place] [address], [place] [phone] * Angiotensin converting enzyme (12/19/2024 2:18 PM CDT) [facility] Angio Convert Enzyme 27 16 - 85 U/L 12/21/2024 2:43 AM CDT [facility] Comment: Performed By: [facility] [address] [place] [address] Corporate Human Resources Manager: Austyn Wilson MD, PhD CLIA Number: [id number] Blood LEFT UPPER ARM STRUCTURE / Unknown Butterfly / Unknown 12/19/2024 2:18 PM CDT 12/19/2024 2:35 PM CDT us Tawanna Yusuf MD LAB BLOOD ORDERABLES Final Re sult [facility] [address] [place] [address], [place] [phone] from Last 3 Months Insurance [employer] Care Teams Senior Validation Engineer Relationship Specialty Start Date End Date Klaudia Kelsey APRN [address] [place] [address] PCP - General Nurse Practitioner 07/18/24
--- OUTSIDE RECORDS SUMMARY | 2025-03-06 08:01 | XMS_ITS | Encounter Summary ---
Author Organization [facility] Address [address] [place] [address] Care Team Providers Care Recruitment Manager Name Role Phone Klaudia Kelsey APRN Primary Care Provider Reason for Referral * EVAL & TREAT (Routine) - Closed Specialty Diagnoses / Procedures Referred By Contac t Referred To Contact Rheumatology Diagnoses Unspecified abnormalities of gait and mobility Spondylolysis, lumbar region Muscle weakness (generalized) Right lower quadrant pain Ronny Weber MD [address] [place] [address] Phone: tel: fax: [facility] [address] [place] [address] Phone: tel: fax: Referral ID Status Reason Start Date Expiration Date V isits Requested Visits Authorized [id number] Closed Specialty Services Required 06/11/2024 06/12/2025 1 1 Encounter Details Date Type Department Care Team (Latest Contact Info) Description 06/12/2024 Order [place] [address] Ronny Weber MD [address] [place] [address] Unspecified abnormalities of gait and mobility (Primary [...] 2:30 PM CDT Office Visit Neurology Clinic [address] [place], [place] [id number] Tawanna Yusuf MD [address] [place] [address] Scheduled Referrals Name Type Priority Associated Diagnoses [...] pain documented in this encounter Care Teams Recruitment Manager Relationship Specialty Start Date End Date Klaudia Kelsey APRN [address] [place] [address] PCP - General Nurse Practitioner 07/18/24 documented as of this encounter
--- NOTE | 2025-03-06 08:05 | W.ED.EYEPROB ---
HPI - Eye Problem General: Chief complaint: Eye Problems Stated complaint: irritated eyes Time Seen by Provider: 03/06/25 08:03 History of Present Illness: 34-year-old male with a history of schizoaffective disorder, anxiety, and fibromyalgia who presents emergency room with eye irritation. He said he has had some upper respiratory symptoms. Flulike symptoms for several days but then for the last 24 hours that started having irritation in his eyes. They are very itchy he says. No pain. He says he started to have some blurriness of his vision and so he decided to have it checked out. No pain with eye movement. Vision is grossly intact. He does have some discharge Related Data Home Medications ?Medication ?Instructions ?Recorded ?Confirmed acetaminophen 500 mg tablet 1,000 mg PO QID PRN 03/21/23 06/28/23 (Tylenol Extra Strength) aripiprazole 10 mg tablet (Abilify) 10 mg PO DAILY 03/21/23 06/28/23 diazepam 10 mg tablet 10 mg PO BID 03/21/23 06/28/23 baclofen 20 mg tablet 20 mg PO TID PRN 03/26/24 03/26/24 clindamycin HCl 300 mg capsule mg PO 03/26/24 03/26/24 dextromethorphan HBr PO 03/26/24 03/26/24 escitalopram oxalate 10 mg tablet 15 mg PO DAILY 03/26/24 03/26/24 (Lexapro) levothyroxine 75 mcg tablet mcg PO 03/26/24 03/26/24 methylphenidate HCl 27 mg mg PO 03/26/24 03/26/24 tablet,extended release 24 hr Previous Rx's ?Medication ?Instructions ?Recorded hydroxychloroquine 200 mg tablet 200 mg PO BID #60 tabs 06/04/24 folic acid 1 mg tablet 1 mg PO DAILY #30 tabs 08/08/24 methotrexate sodium 2.5 mg tablet See Rx Instructions .Route 08/08/24 .COMPLEX #30 tabs pantoprazole 40 mg tablet,delayed See Rx Instructions PO DAILY #30 08/08/24 release tabs amoxicillin 875 mg-potassium 1 tab PO BID #20 tabs 08/26/24 clavulanate 125 mg tablet pregabalin 100 mg capsule (Lyrica) 200 mg (2 x 100 mg) PO BID #120 12/11/24 caps tobramycin 0.3 %-dexamethasone 1 drp ophthalmic (eye) Q6H 5 days 03/06/25 0.05 % eye drops,suspension #5 mL (Tobradex ST) Allergies Allergy/AdvReac Type Severity Reaction Status Date / Time cefaclor (From [facility]) Allergy Intermediate hives Verified 08/26/24 17:17 Tetanus Vaccines and Toxoid Allergy Unknown unknown Verified 08/26/24 17:17 Review of Systems Narrative: Constitutional symptoms: Negative except as documented in HPI. Skin symptoms: Negative except as documented in HPI. Eye symptoms: Negative except as documented in HPI. ENMT symptoms: Negative except as documented in HPI. Respiratory symptoms: Negative except as documented in HPI. Cardiovascular symptoms: Negative except as documented in HPI. Gastrointestinal symptoms: Negative except as documented in HPI. Genitourinary symptoms: Negative except as documented in HPI. Musculoskeletal symptoms: Negative except as documented in HPI. Neurologic symptoms: Negative except as documented in HPI. Psychiatric symptoms: Negative except as documented in HPI. Endocrine symptoms: Negative except as documented in HPI. PFSH ED PFSH: Medical History (Updated 03/06/25 @ 08:05 by Kallie Bansal MD) Immunization counseling High risk medication use Inflammatory back pain Seronegative rheumatoid arthritis of both hands Fibromyalgia Hypothyroid Schizo affective schizophrenia Bipolar 1 disorder, depressed Panic attack ADHD Joint pain Surgical History History of dental surgery Family History Other Cancer Denies family history of Lupus (systemic lupus erythematosus) Rheumatoid arthritis Diabetes Autoimmune disease Chronic kidney disease (CKD) Hypertension Social History Smoking and tobacco/nicotine status: never used tobacco/nicotine Alcohol intake: never Substance/Drug Use: never Physical Exam Narrative: EXAM NARRATIVE: General: Alert, no acute distress. Skin: warm and dry Head: Normocephalic Neck: Trachea midline Eye: Extraocular movements are intact. No pain with movement. Grossly intact vision. Sclera are somewhat injected also some eyelid erythema. Some discharge Ears, nose, mouth and throat: Oral mucosa moist Respiratory: Respirations are non-labored Musculoskeletal: Normal ROM Gastrointestinal: Abdomen does not appear distended Neurological: Alert and oriented, No focal neurological deficit observed. Psychiatric: Cooperative, appropriate mood & affect. Course Vital Signs: Vital signs: Vital Signs Temperature 98.3 F 03/06/25 08:01 Pulse Rate 82 03/06/25 08:01 Respiratory Rate 16 03/06/25 08:01 Blood Pressure 127/83 03/06/25 08:01 Pulse Oximetry 93 03/06/25 08:01 Oxygen Delivery Me thod Room Air 03/06/25 08:01 MDM - Eye Problem Medical Decision Making Medical decision making Patient's reason for coming to the emergency room: Eye irritation Social determinants:Patient is self-employed. Accompanied by his I reviewed the patient's medical record. History of schizoaffective disorder, fibromyalgia, anxiety, rheumatoid arthritis I reviewed the patient's current home meds Patient on aripiprazole, escitalopram, diazepam. Also methotrexate and hydroxychloroquine for rheumatoid arthritis Alternate historians: None Differential diagnosis: including but not limited to and based on the above HPI, review of systems and physical exam: Patient has a fairly apparent conjunctivitis. Likely viral but could be a secondary bacterial infection. No further studies or imaging today. Assessment and plan: Conjunctivitis - Discharged home - Discussed plan with patient. Answered any questions. - Evaluation and treatment of this problem were appropriate in the emergency setting. All radiology interpretation(s) finalized by discharge Discharge Plan Discharge Patient Disposition: Home Clinical Impression: Conjunctivitis Condition: Stable Prescriptions: New Tobradex ST 0.3-0.05 % drops,suspension 1 drp ophthalmic (eye) Q6H 5 Days Qty: 5 0RF No Action aripiprazole [Abilify] 10 mg tablet 10 mg PO DAILY diazepam 10 mg tablet 10 mg PO BID acetaminophen [Tylenol Extra Strength] 500 mg tablet 1,000 mg PO QID PRN clindamycin HCl 300 mg capsule PO baclofen 20 mg tablet 20 mg PO TID PRN levothyroxine 75 mcg tablet PO methylphenidate HCl 27 mg tablet extended release 24hr PO escitalopram oxalate [Lexapro] 10 mg tablet 15 mg PO DAILY dextromethorphan HBr PO hydroxychloroquine 200 mg tablet 200 mg PO BID Qty: 60 0RF folic acid 1 mg tablet 1 mg PO DAILY Qty: 30 0RF pantoprazole 40 mg tablet,delayed release (DR/EC) See Rx Instructions PO DAILY Qty: 30 1RF Rx Instructions: take in AM 30 minutes before meal PO daily; methotrexate sodium 2.5 mg tablet See Rx Instructions .ROUTE .COMPLEX Qty: 30 0RF Dose Instruction: TAKE 6 TABLETS BY MOUTH ONCE A WEEK DIRECTED Rx Instructions: TAKE 6 TABLETS BY MOUTH ONCE A WEEK DIRECTED pregabalin [Lyrica] 100 mg capsule 200 mg PO BID Qty: 120 5RF amoxicillin-pot clavulanate 875-125 mg tablet 1 tab PO BID Qty: 20 0RF Discharge Orders: Discharge ED (Routine); Ordered 03/06/25 Ordered By: Kallie Bansal Referrals: Klaudia Mullins APRN [Primary Care Provider] Patient Instructions: Conjunctivitis (ED), Opioid Safety, Pain Management, Patient Portal & Teresa Instructions Activity Restrictions/Additional Instructions: Thank you for choosing [facility] for your healthcare needs today. You have been screened and evaluated and felt safe for discharge. Health conditions do change or evolve sometimes and as such it is important that you follow up with your Primary Doctor to be re checked, 3-5 days is a general good time frame for follow up. You are always welcome to return to the ED for re assessment if your symptoms are worsening or you have new concerns. (Please note that included in your discharge packet is information concerning opioid safety and pain management. This information is given to all patients who are discharged from the ER regardless of their discharge diagnosis or the medicines they usually take or are prescribed.) Print Language: Mauritian Coding Level of Care Code ED Treatment Counselor for Randall Kebede
[2025-03-06 08:12] VITALS: BP 121/74; PULSE 87; RESP 16; O2SAT 94
== END 2025-03-06 08:16 | disposition home or self-care (01) ==
PROVIDERS: Emergency Provider Emergency Medicine; PCP Nurse Practitioner
DX: H10.9 Unspecified conjunctivitis (principal)
CPT/HCPCS: 99283